=== PATIENT | male | born 1940 | race Hispanic/Latino ===

== ENCOUNTER 2017-05-14 10:46 | Observation (INO) | payer BC, MEDICARE ==
--- NOTE | 2017-05-14 11:08 | ED PDOC ---
Arrival/HPI - General Chief Complaint: Weakness/Neurological Deficit Time Seen by Provider: 05/14/17 10:51 Historian: Patient, Family - History of Present Illness Narrative History of Present Illness (Text): 05/14/17 10:55 A 76 year old male, whose past medical history includes Alzheimer's, COPD, dementia, and hypertension, accompanied by family members and presents to the emergency department with possible TIA. Patient's family members report patient started developing facial droop and eye rolled back and deviated to the left. Had possible near-syncopal episode. Patient denies any pain, fever, or any other complaints at this time. Also, family member mentions patient experiencing mini stroke several years ago. PMD: Dr. Perez Past Medical History - Provider Review Nursing Documentation Reviewed: Yes - Infectious Disease Hx of Infectious Diseases: None - Tetanus Immunization Tetanus Immunization: Unknown - Cardiac Hx UT: No Hx Hypertension: Yes - Pulmonary Hx Chronic Obstructive Pulmonary Disease (COPD): Yes - Neurological Hx Transient Ischemic Attacks (TIA): No - HEENT Hx HEENT Disorder: No - Endocrine/Metabolic Hx Diabetes Mellitus Type 1: No Hx Diabetes Mellitus Type 2: No - Integumentary Other/Comment: buttocks reddened - Musculoskeletal/Rheumatological Hx Falls: Yes - Genitourinary/Gynecological Hx Prostate Problems: Yes - Psychiatric Hx Depression: No Hx Emotional Abuse: No Hx Physical Abuse: No Hx Substance Use: No - Past Surgical History Past Surgical History: No Previous - Suicidal Assessment Feels Threatened In Home Enviroment: No Family/Social History - Physician Review Nursing Documentation Reviewed: Yes Family/Social History: No Known Family HX Smoking Status: Former Smoker Hx Alcohol Use: No Hx Substance Use: No Allergies/Home Meds Allergies/Adverse Reactions: Allergies No Known Allergies Allergy (Verified 05/20/15 16:06) Home Medications: Home Meds Medication Instructions Recorded Confirmed Lisinopril [Zestril] 20 mg PO DAILY 02/11/16 05/14/17 Tamsulosin [Flomax] 0.4 mg PO DAILY 02/11/16 05/14/17 Review of Systems - Review of Systems Constitutional: absent: Fevers, Other (no pain) Cardiovascular: Syncope (possible near-syncoal episode) Neurological: Facial Droop Physical Exam Vital Signs Temp Pulse Resp BP Pulse Ox 05/14/17 12:46 67 16 129/71 100 05/14/17 10:58 57 L 20 125/71 98 05/14/17 10:46 97.6 F 74 19 123/71 99 Finger Stick Blood Glucose: 114 - Systems Exam Head: Present: Atraumatic, Normocephalic Pupils: Present: PERRL Extroacular Muscles: Present: EOMI Conjunctiva: Present: Normal Mouth: Present: Moist Mucous Membranes Neck: Present: Normal Range of Motion Respiratory/Chest: Present: Clear to Auscultation, Good Air Exchange. No: Respiratory Distress, Accessory Muscle Use Cardiovascular: Present: Regular Rate and Rhythm, Normal S1, S2. No: Murmurs Abdomen: Present: Normal Bowel Sounds. No: Tenderness, Distention, Peritoneal Signs Back: Present: Normal Inspection Upper Extremity: Present: Normal Inspection. No: Cyanosis, Edema Lower Extremity: Present: Normal Inspection. No: Edema Neurological: Present: GCS=15, CN II-XII Intact, Speech Normal Skin: Present: Warm, Dry, Normal Color. No: Rashes Psychiatric: Present: Alert, Oriented x 3, Normal Insight, Normal Concentration Medical Decision Making ED Course and Treatment: 05/14/17 10:58 Impression: 76 year old male with possible TIA. Physical exam is benign. Plan: -- EKG -- Head CT -- Chest X-ray -- Labs -- Urinalysis -- Reassess and disposition Prior Visits: Notes and results from previous visits were reviewed. Patient was last seen in the emergency department on 02/11/2016 for abdominal distention and pain. Patient was admitted. Progress Notes: 05/14/2017 10:58 Code Stroke called. EKG: Ordered, reviewed, and independently interpreted the EKG. Rate : 65 BPM Rhythm : NSR Interpretation : No ST-segment elevations or depressions, no T-wave inversions, normal intervals. Comparison : No previous EKG for comparison. 05/14/2017 11:[address] FINDINGS: HEMORRHAGE: No intracranial hemorrhage. BRAIN: No mass effect or edema. Severe chronic microvascular changes are seen in the periventricular white matter. 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 VENTRICLES: Unremarkable. No hydroecephalus. CALVAIRUM: Unremarkable. PARANASAL SINUSES: Unremarkable as visualized. No significant inflammatory changes. 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 Findings are unchanged. OTHER FINDINGS: The findings were discussed with Dr. Soni at 11:20. IMPRESSION: Chronic infarcts and microvascular changes. No acute findings. Dictator: Chava Keith MD 05/14/2017 11:37 Chest X-ray FINDINGS: LUNGS: No active pulmonary disease. Low-normal lung volumes. No consolidation apparent prominent right 1st coaster cartilaginous junctional calcification. PLEURA: No significant pleural effusion identified, no pneumonthorax apparent. CARDIOVASCULAR: Normal. OSSEOUS STRUCTURES: Bilateral shoulder arthosis. VISUALIZED UPPER ABDOMEN: Normal. OTHER FINDINGS: None. IMPRESSION: No interval pathology noted. Dictator: Gabi Hagen MD - Lab Interpretations Lab Results: 05/14/17 11:15 05/14/17 11:15 Lab Results 05/14/17 11:15: Blood Type AB POSITIVE, Antibody Screen Negative, BBK History Checked No verified bt 05/14/17 11:15: Sodium 132, Potassium 4.9, Chloride 96 L, Carbon Dioxide 26, Anion Gap 15, BUN 13, Creatinine 1.1, Est GFR ( Amer) > 60, Est GFR (Non- Af Amer) > 60, Random Glucose 128 H, Calcium 10.1, Total Bilirubin 0.8, AST 30, ALT 31, Alkaline Phosphatase 58, Lactate Dehydrogenase 381, Total Creatine Kinase 107, Troponin I < 0.01, Total Protein 7.8, Albumin 4.5, Globulin 3.3, Albumin/Globulin Ratio 1.3, Triglycerides 84, Cholesterol 177, LDL Cholesterol Direct 124, HDL Cholesterol 39 05/14/17 11:15: Urine Color Yellow, Urine Appearance Sl cloudy, Urine pH 5.5, Ur Specific Starlight 1.020, Urine Protein Negative, Urine Glucose (UA) Negative, Urine Ketones Negative, Urine Blood Negative, Urine Nitrate Negative, Urine Bilirubin Negative, Urine Urobilinogen 0.2, Ur Leukocyte Esterase Small H, Urine RBC 0 - 2, Urine WBC 5 - 10, Ur Epithelial Cells 10 - 12, Urine Bacteria Mod 05/14/17 11:15: PT 12.2, INR 1.11 H, APTT 31.0 05/14/17 11:15: WBC 9.1 D, RBC 4.81, Hgb 14.9, Hct 43.2, MCV 89.8, MCH 31.0, MCHC 34.5, RDW 13.0, Plt Count 236, MPV 9.5, Gran % 82.7 H, Lymph % (Auto) 9.6 L , [place] % (Auto) 6.4 H, Eos % (Auto) 1.1 L, Baso % (Auto) 0.2, Gran # 7.49 H, Lymph # 0.9 L, [place] # 0.6, Eos # 0.1, Baso # 0.02 - RAD Interpretation Radiology Orders: 05/14/17 10:58 HEAD W/O (CODE STROKE) [CT] Stat CHEST PORTABLE [RAD] Stat - Medication Orders Current Medication Orders: Discontinued Medications Aspirin (Aspirin Supp) 300 mg RC STAT STA Stop: 05/14/17 12:18 Last Admin: 05/14/17 12:55 Dose: 300 mg MAR Pain/Vitals Document 05/14/17 12:55 JOL (Rec: 05/14/17 13:22 [id number] Pain Reassessment Is This A Pain ReAssessment? No Sleep Is patient sleeping during reassessment? No Presence of Pain Presence of Pain No Ceftriaxone Sodium (Rocephin 1 Gram Ivpb (D5w)) 1 gm in 100 mls @ 200 mls/hr IVPB STAT ONE PRN Reason: Protocol Stop: 05/14/17 12:44 Last Admin: 05/14/17 13:22 Dose: 200 mls/hr eMAR Start Stop Document 05/14/17 13:22 JOL (Rec: 05/14/17 13:22 [id number]) Intravenous Solution Start Date 05/14/17 Start Time 12:55 End Date 05/14/17 End time 13:25 Total Infusion Time 30 NIHSS Scale ([place]) Time Performed: 12:12 - How Severe is the Stoke Baseline Level of Consciousness: 0=Alert LOC to Questions: 0=Both comments correct LOC to commands: 0=Obeys both correctly Best Gaze: 0=Normal Visual: 0=No visual loss Facial: 0=Normal Motor Arm - Left: 0=No drift Motor Arm - Right: 0=No drift Motor Leg - Left: 0=No drift Motor Leg - Right: 0=No drift Limb Ataxia: 0=Absent Sensory: 0=Normal Best Language: 0=No aphasia Dysarthia: 0=Normal articulation Extinction & Inattention (Neglect): 0=Normal, no object Score: 0 Risk Level: No Stroke Risk rTPA Inclusion/Exclusion - Inclusion Criteria for Altepase Patient is 18 years or Older: Yes The Clinical Diagnosis of Ischemic Stroke That is Causing a Potentially Disabling Neurological Deficit: No Time of Onset is Well Established to be Less Than 270 Minute Before Treatment Would Begin: Yes Risk/Benefit Discussed With Patient/Family Member Present: Yes - Scribe Statement The provider has reviewed the documentation as recorded by the Geovanni Jarquin Provider Scribe Attestation: All medical record entries made by the Geovanni were at my direction and personally dictated by me. I have reviewed the chart and agree that the record accurately reflects my personal performance of the history, physical exam, medical decision making, and the department course for this patient. I have also personally directed, reviewed, and agree with the discharge instructions and disposition. Disposition/Present on Arrival - Present on Arrival Any Indicators Present on Arrival: No History of DVT/PE: No History of Uncontrolled Diabetes: No Urinary Catheter: No History of Decub. Ulcer: No History Surgical Site Infection Following: None - Disposition Have Diagnosis and Disposition been Completed?: Yes Diagnosis: Facial droop Disposition: HOSPITALIZED Disposition Time: 12:12 Patient Problems: Current Active Problems Problem Status Onset Facial droop Acute Condition: STABLE
--- NOTE | 2017-05-14 11:26 | CT ---
PROCEDURE: CT HEAD WITHOUT CONTRAST. HISTORY: Code Stroke COMPARISON: 02/12/2016 TECHNIQUE: Axial computed tomography images were obtained through the head/brain without intravenous contrast. Radiation dose: Total exam DLP = 747 mGy-cm. This CT exam was performed using one or more of the following dose reduction techniques: Automated exposure control, adjustment of the mA and/or kV according to patient size, and/or use of iterative reconstruction technique. FINDINGS: HEMORRHAGE: No intracranial hemorrhage. BRAIN: No mass effect or edema. Severe chronic microvascular changes are seen in the periventricular white matter. 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 VENTRICLES: Unremarkable. No hydrocephalus. CALVARIUM: Unremarkable. PARANASAL SINUSES: Unremarkable as visualized. No significant inflammatory changes. 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 Findings are unchanged OTHER FINDINGS: The findings were discussed with Dr. Soni at 11:20 a.m. IMPRESSION: Chronic infarcts and microvascular changes. No acute findings
[2017-05-14 11:36] LABS: BASO # 0.02 K/mm3 (0.0-2.0); BASO % 0.2 % (0.0-3.0); EOS # 0.1 (0.0-0.7); EOS % 1.1 % (1.5-5.0); GRAN # 7.49 (1.4-6.5); GRAN % 82.7 % (50.0-68.0); HEMATOCRIT 43.2 % (42.0-52.0); LYMPH # 0.9 (1.2-3.4); LYMPH % 9.6 % (22.0-35.0); MEAN CELL VOLUME 89.8 fl (80.0-105.0); MEAN CORPUSCULAR HGB CONC 34.5 g/dl (31.0-37.0); MEAN PLATELET VOLUME 9.5 fl (7.0-11.0); MONO # 0.6 (0.1-0.6); MONO % 6.4 % (1.0-6.0); PH,URINE 5.5 (4.7-8.0); URINE BILIRUBIN NEGATIVE (NEGATIVE); URINE BLOOD NEGATIVE (NEGATIVE); URINE GLUCOSE (UA) NEGATIVE (NEGATIVE); URINE KETONE NEGATIVE (NEGATIVE); URINE LEUKOCYTE ESTERASE SMALL Leu/uL (NEGATIVE); URINE PROTEIN NEGATIVE mg/dL (<30 mg/dL); URINE UROBILINOGEN 0.2 E.U./dL (<1 E.U./dL); WHITE BLOOD COUNT 9.1 10^3/ul (4.5-11.0)
[2017-05-14 11:37] LABS: URINE APPEARANCE SL CLOUDY (CLEAR); URINE COLOR YELLOW (YELLOW)
--- NOTE | 2017-05-14 11:39 | RAD ---
HISTORY: code stroke COMPARISON: 02/13/2016 FINDINGS: LUNGS: No active pulmonary disease. Low-normal lung volumes. No consolidation apparent prominent right 1st coaster cartilaginous junctional calcification. PLEURA: No significant pleural effusion identified, no pneumothorax apparent. CARDIOVASCULAR: Normal. OSSEOUS STRUCTURES: Bilateral shoulder arthrosis VISUALIZED UPPER ABDOMEN: Normal. OTHER FINDINGS: None. IMPRESSION: No interval pathology noted
[2017-05-14 11:48] LABS: URINE BACTERIA MOD (NEG); URINE RBC 0 - 2 /hpf (0-2)
[2017-05-14 11:49] LABS: ALB/GLOB RATIO 1.3 (1.1-1.8); ALKALINE PHOSPHATASE 58 U/L (38-126); ALT/SGPT 31 U/L (7-56); AST/SGOT 30 U/L (17-59); BILIRUBIN,TOTAL 0.8 mg/dL (0.2-1.3); BLOOD UREA NITROGEN 13 mg/dL (7-21); CALCIUM 10.1 mg/dL (8.4-10.5); CARBON DIOXIDE 26 mmol/L (21-33); CHLORIDE 96 mmol/L (98-107); CHOLESTEROL 177 mg/dL (130-200); GFR AFRICAN-AMERICAN > 60; GLUCOSE,RANDOM 128 mg/dL (70-110); POTASSIUM 4.9 mmol/L (3.6-5.0); SODIUM 132 mmol/L (132-148); TOTAL PROTEIN 7.8 g/dL (5.8-8.3)
[2017-05-14 11:55] LABS: INR 1.11 (0.93-1.08)
[2017-05-14 11:58] LABS: TROPONIN I < 0.01 ng/mL
[2017-05-14] MEDS ORDERED: cefTRIAXone 1 gm 1 GM/100 ML BAG IVPB ONE (12:15)
[2017-05-14] MEDS ORDERED: cefTRIAXone 1 gm 1 GM/100 ML BAG IVPB SCH (12:15)
--- NOTE | 2017-05-14 15:08 | CP.PCM.CON ---
<Dorys Villela - Last Filed: 05/14/17 17:34> History of Present Illness - History of Present Illness History of Present Illness: PGY-2 Neurology consult note for Dr. Cox's service 76 year old male with past medical history of Alzheimer's, COPD, dementia, and hypertension, presented to ED for facial droop and possible TIA. Patient has a history of dementia and his alert and orient to person only, history taken from family at bedside. Patient's at bedside states that patient was on the toilet when he developed facial droop and his eye rolled back and deviated to the left. She states that it lasted a few minutes and resolved spontaneously. She was unable to determine if patient was altered after the episode due to his dementia. She states that he is compliant with his medications. She denies any recent illness, travel. Patient denies any pain, fever, or any other complaints at this time. Patient does have history of mini stroke. PMH: Alzheimer's, COPD, dementia, and hypertension PSH: denies social history: former smoker, denies alcohol use, illicit drug use family history: father heart disease Review of Systems - Review of Systems Systems not reviewed;Unavailable: Dementia All systems: reviewed and no additional remarkable complaints except (as stated in HPI) Past Patient History - Infectious Disease Hx of Infectious Diseases: None - Tetanus Immunizations Tetanus Immunization: Unknown - Past Social History Smoking Status: Former Smoker - CARDIAC Hx Heart Attack: No Hx Hypertension: Yes - PULMONARY Hx Chronic Obstructive Pulmonary Disease (COPD): Yes - NEUROLOGICAL Hx Transient Ischemic Attacks (TIA): No - HEENT Hx HEENT Problems: No - ENDOCRINE/METABOLIC Hx Diabetes Mellitus Type 1: No Hx Diabetes Mellitus Type 2: No - INTEGUMENTARY Other/Comment: buttocks reddened - MUSCULOSKELETAL/RHEUMATOLOGICAL Hx Falls: Yes - GENITOURINARY/GYNECOLOGICAL Hx Prostate Problems: Yes - PSYCHIATRIC Hx Depression: No Hx Emotional Abuse: No Hx Physical Abuse: No Hx Substance Use: No - SURGICAL HISTORY Hx Surgeries: No Meds Allergies/Adverse Reactions: Allergies Allergy/AdvReac Type Severity Reaction Status Date / Time No Known Allergies Allergy Verified 05/14/17 14:55 Physical Exam - Constitutional Appears: Well, No Acute Distress - Head Exam Head Exam: ATRAUMATIC, NORMAL INSPECTION, NORMOCEPHALIC - Eye Exam Eye Exam: EOMI, Normal appearance, PERRL - ENT Exam ENT Exam: Mucous Membranes Moist - Respiratory Exam Respiratory Exam: Clear to Auscultation Bilateral, NORMAL BREATHING PATTERN. absent: Wheezes, Respiratory Distress, Stridor - Cardiovascular Exam Cardiovascular Exam: REGULAR RHYTHM, +S1, +S2. absent: Tachycardia, Diastolic murmur, Systolic Murmur - GI/Abdominal Exam GI & Abdominal Exam: Normal Bowel Sounds, Soft. absent: Tenderness - Neurological Exam Neurological exam: Alert, CN II-XII Intact Additional comments: patient is alert and oriented to person only, at baseline history of dementia, no facial droop or asymmetry, no pronator drift, strength 5/5 all extremities - Skin Skin Exam: Dry, Intact, Normal Color, Warm Results - Vital Signs Recent Vital Signs: Last Vital Signs Temp 97.6 F 05/14/17 10:46 Pulse 67 05/14/17 12:46 Resp 16 05/14/17 12:46 BP 129/71 05/14/17 12:46 Pulse Ox 100 05/14/17 12:46 - Labs Result Diagrams: 05/14/17 11:15 05/14/17 11:15 Labs: Laboratory Results - last 24 hr 05/14/17 13:07 Blood Type Confirm AB POSITIVE Assessment & Plan - Assessment and Plan (Free Text) Assessment: 76 year old male with past medical history of Alzheimer's, COPD, dementia, and hypertension, presented to ED for facial droop most likely due to vaso vagal vs blood pressure fluctuations . - CT head showed chronic infarct and mircovascular changes - maintain blood pressure - orthostatic vitals - mri and mra of brain - carotid US - PT/OT case reviewed an discussed with attending <Jama Cox - Last Filed: 05/14/17 19:56> Meds - Medications Medications: Current Medications Lisinopril (Zestril) 20 mg PO DAILY AZALIA Results - Vital Signs Recent Vital Signs: Last Vital Signs Temp 97 F L 05/14/17 17:53 Pulse 60 05/14/17 18:00 Resp 18 05/14/17 17:53 BP 159/79 H 05/14/17 17:53 Pulse Ox 97 05/14/17 17:53 - Labs Result Diagrams: 05/14/17 11:15 05/14/17 11:15 Labs: Laboratory Results - last 24 hr 12/13/17 13:07 Blood Type Confirm AB POSITIVE Attending/Attestation - Attestation I have personally seen and examined this patient.: Yes I have fully participated in the care of the patient.: Yes I have reviewed all pertinent clinical information: Yes
[2017-05-14 17:28] VITALS: BMI 21.4
[2017-05-14] MEDS ORDERED: Pneumococcal 23-Valent Vaccine IM ONE (17:28)
[2017-05-14] MEDS ORDERED: Influenza Vaccine 60 mcg/0.5 mL SYR (4YR UP) IM ONE (17:28)
--- NOTE | 2017-05-14 19:23 | MRI ---
EXAM: MR Angiography Head Without Intravenous Contrast EXAM DATE/TIME: 05/14/2017 4:23 PM CLINICAL HISTORY: The patient age is 76 years old and is male; Signs and symptoms; Other: TIA Facility exam id and description: Mri mra heads mra head without contrast TECHNIQUE: Magnetic resonance angiography images of the head without intravenous contrast. MIP reconstructed images were created and reviewed. COMPARISON: CT - HEAD W/O (CODE STROKE) 2017-05-14 11:04 FINDINGS: Limitations: This study is technically limited. Right internal carotid artery: No acute findings. Intracranial segment is patent with no significant stenosis. No aneurysm. Right anterior cerebral artery: There is stenosis of the A1 segment of the right anterior cerebral artery. Motion artifact limits evaluation of the anterior cerebral arteries. Right middle cerebral artery: There is mild stenosis of the distal right M1 segment of the middle cerebral artery. There are short segments of flow-voids involving M2 branches of the bilateral middle cerebral arteries, consistent with hemodynamically significant stenoses when correlated with the raw data. No aneurysm. Right posterior cerebral artery: There are stenoses of the bilateral posterior cerebral arteries. No aneurysm. Right vertebral artery: There is a limited evaluation of the distal vertebral arteries. No visualized stenosis or occlusion Left internal carotid artery: Motion artifact limits evaluation of the anterior cerebral arteries. No occlusion. Left anterior cerebral artery: No occlusion or significant stenosis. No aneurysm. Left middle cerebral artery: No occlusion or significant stenosis. No aneurysm. Left posterior cerebral artery: See above. Left vertebral artery: There is stenosis of the distal left vertebral artery. Basilar artery: No occlusion or significant stenosis. No aneurysm. IMPRESSION: 1. There is stenosis of the distal left vertebral artery. 2. There is mild stenosis of the distal right M1 segment of the middle cerebral artery. There are short segments of flow-voids involving M2 branches of the bilateral middle cerebral arteries, consistent with hemodynamically significant stenoses when correlated with the raw data. 3. There is stenosis of the A1 segment of the right anterior cerebral artery. 4. Additional findings described above.
--- NOTE | 2017-05-14 19:35 | MRI ---
EXAM: MR Head Without Intravenous Contrast EXAM DATE/TIME: 05/14/2017 4:22 PM CLINICAL HISTORY: The patient age is 76 years old and is male; Signs and symptoms; Other: TIA Facility exam id and description: Mri br s brain without contrast TECHNIQUE: Magnetic resonance images of the head/brain without intravenous contrast in multiple planes. COMPARISON: CT - HEAD W/O (CODE STROKE) 2017-05-14 11:04 FINDINGS: Brain: There is no restricted diffusion within the brain to suggest acute ischemic change. There are multiple foci/areas of high FLAIR signal intensity within the cerebral white matter. There is no mass effect or restricted diffusion associated with these foci. In a patient this age, this likely represents chronic small vessel ischemic disease. Foci of T2 hyperintense chronic ischemic changes/chronic lacunar infarcts are identified within the bilateral basal ganglia, bilateral thalami, jalen, and cerebellar lobes. There is mild prominence of the sulci, compatible with atrophy. Small foci of magnetic susceptibility are identified within the right parietal lobe, with additional foci within the jalen, left temporal lobe, bilateral thalami, and left basal ganglia. Some of these foci are associated with chronic lacunar infarcts within the bilateral thalami and left basal ganglia. 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 Cavernous malformations and amyloid angiopathy are also within the differential. There is a low-lying right cerebellar tonsil extending 6 mm below the level of the foramen magnum, suggestive of a Chiari I malformation. Ventricles: There is mild ventriculomegaly. Bones/joints: No acute abnormality. Sinuses: Unremarkable as visualized. No acute sinusitis. Mastoid air cells: Effusions are again visualized within the left mastoid air cells. There is disruption of the left mastoid air cells and middle ear ossicles on CT, which is likely erosive for postoperative. Orbits: No acute abnormality, as visualized. IMPRESSION: 1. There is no restricted diffusion within the brain to suggest acute ischemic change. 2. There are multiple foci/areas of high FLAIR signal intensity within the cerebral white matter. In a patient this age, this likely represents chronic small vessel ischemic disease. 3. Foci of chronic ischemic changes/chronic lacunar infarcts are identified within the bilateral basal ganglia, bilateral thalami, jalen, and cerebellar lobes. 4. Mild atrophy. 5. There is mild ventriculomegaly. 6. Small foci of magnetic susceptibility are identified within the right parietal lobe, with additional foci within the jalen, left temporal lobe, bilateral thalami, and left basal ganglia. Some of these foci are associated with chronic lacunar infarcts within the bilateral thalami and left basal ganglia. 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 Cavernous malformations and amyloid angiopathy are also within the differential. 7. There is a low-lying right cerebellar tonsil extending 6 mm below the level of the foramen magnum, suggestive of a Chiari I malformation. 8. Effusions are again visualized within the left mastoid air cells.
--- NOTE | 2017-05-14 21:09 | CON ---
DATE: HISTORY OF PRESENT ILLNESS: This is 76-year-old white male with past medical history of dementia, COPD, hypertension, came to the emergency room with the complaint of facial droop and eyes rolling backward and deviated to the left, and the patient was brought to the emergency room. CAT scan of the head was done which was reported negative, symptoms improved. PAST MEDICAL HISTORY: COPD, dementia, and hypertension. The patient also had a history of TIA. PHYSICAL EXAMINATION: HEENT: Normocephalic, atraumatic. Pupils are reactive. EOM intact. Visual torres, full. No facial asymmetry. Tongue is midline. NECK: Supple. NEUROLOGIC: Alert, awake, and oriented x3. No aphasia. Cranial nerves II through XII are tested. Motor examination: Moves all the extremities spontaneously, upper more than the lower. Deep tendon reflexes 1+. Both plantars are downgoing. Sensory appears intact. Cerebellar and gait, deferred. LABORATORY DATA: WBC 9.1, hemoglobin 14.9, hematocrit 43.2, and platelets 236. Sodium 132, potassium 4.9, chloride 96, CO2 of 26, glucose 128, BUN 13, creatinine 1.1. IMPRESSION: Possibly transient ischemic attack. PLAN: Workup is in progress. Continue present management and we will follow up. We will do carotid Doppler. Harley Cox MD
--- NOTE | 2017-05-14 23:20 | CARD ---
APPROVED REPORT EKG Measurement Heart [id number] <Conclusion> Normal sinus rhythm Normal ECG
--- NOTE | 2017-05-15 02:25 | HP ---
HISTORY OF PRESENT ILLNESS: I known Yoshi very well from house calls. The has called me telling me he had facial change, we sent him to the emergency room, it resolved. I see him in the bed in room 372. He is comfortable, smiling at me in bed. He is back to his old self. I do not think he might have had a TIA, but he is also having swallowing issues. We are waiting for swallow evaluation before we feed him. He is a 76-year-old man with acute change in face with left-sided facial droop. PAST MEDICAL HISTORY: Alzheimer's, COPD, dementia, hypertension, falls, prostate problems of BPH. FAMILY HISTORY: Hypertension in the family. SOCIAL HISTORY: Former smoker. No alcohol. No drugs. ALLERGIES: NO KNOWN DRUG ALLERGIES. MEDICATIONS: He is on Zestril, Flomax, supposed to be on a baby aspirin. REVIEW OF SYSTEMS: He is really unable to give me answers, the is there, but he is smiling and putting his hand out to shake my hand, in good spirits at his baseline. He said my name, but no apparent vision or hearing changes, no acute distress. No apparent shortness of breath or chest pain or abdominal pain. Moves all four extremities. PHYSICAL EXAMINATION: VITAL SIGNS: He has 97.6 temperature, 74 pulse, 19 respiratory rate, 123/71 blood pressure, and 99% O2 saturation on room air. HEENT: His head is atraumatic and normocephalic. Extraocular muscles intact. Pupils are equal and reactive to light and accommodation. Tongue is midline. He closes his eyes tight. He can shrug his shoulders. He can raise his arms over his head. He could smile and frown. Throat is moist. NECK: Supple. HEART: Regular rate. Normal S1 and S2. LUNGS: Clear to auscultation. Decreased breath sounds right now. No rhonchi, rales or wheezes. ABDOMEN: Soft and nontender. Positive bowel sounds. No guarding. No rebound. No CVA tenderness. EXTREMITIES: No edema. He could move all four extremities. NEUROLOGIC: GCS is 15. Cranial nerves II through XII grossly intact. Speech is normal. SKIN: Warm and dry. No rashes or ulcers appreciated. PSYCHIATRIC: He is presently confused, smiling at me. No neurological issue at this time and mostly resolved. LABORATORY DATA: He had a urine which is small and moderate bacteria. I will put him on antibiotic for UTI. Sodium 132, potassium 4.9, BUN 30, creatinine 1.1, GFR is greater than 60, sugars is 128, calcium 10.1, total bili is 0.8, AST is 30, ALT is 31, alk phos is 58, lactate dehydrogenase is 381, total creatine kinase is 107, troponin I is less than 0.01, total protein is 7.8, albumin is 4.5, globulin 2.3, triglycerides are 84, and cholesterol 177. INR 1.11. White count 9.1, hemoglobin 14.9, 43.2 hematocrit with 236 platelets. He had a chest x-ray. No interval pathology noted on the chest. Brain showed chronic infarcts, no acute findings. IMPRESSION AND PLAN: He is here, looks like he is having a facial droop which resolved, looks like a transient ischemic attack. I will call in Neurology. I will call in Cardiology. He is on aspirin, ceftriaxone one time dose for urinary tract infection and Zestril. He is n.p.o. until his swallow evaluation recommends. Take a look at physical therapy, discussed with the at length. Hopefully, he will do very well. I will check his labs tomorrow. He is probably having a transient ischemic attack at this time. He is on observation level of care. Maurice Perez DO MTDD
[2017-05-15 07:29] LABS: HEMATOCRIT 41.5 % (42.0-52.0); MEAN CELL VOLUME 88.5 fl (80.0-105.0); MEAN CORPUSCULAR HEMOGLOBIN 30.3 pg (25.0-35.0); MEAN CORPUSCULAR HGB CONC 34.2 g/dl (31.0-37.0); MEAN PLATELET VOLUME 9.6 fl (7.0-11.0); RED CELL DISTRIBUTION WIDTH 12.9 % (11.5-14.5); WHITE BLOOD COUNT 6.9 10^3/ul (4.5-11.0)
[2017-05-15 08:13] LABS: ALB/GLOB RATIO 1.3 (1.1-1.8); ALKALINE PHOSPHATASE 65 U/L (38-126); ALT/SGPT 34 U/L (7-56); AST/SGOT 27 U/L (17-59); BLOOD UREA NITROGEN 13 mg/dL (7-21); CALCIUM 9.6 mg/dL (8.4-10.5); GFR AFRICAN-AMERICAN > 60; GLUCOSE,RANDOM 91 mg/dL (70-110); TOTAL PROTEIN 7.2 g/dL (5.8-8.3)
[2017-05-15 08:29] LABS: CARBON DIOXIDE 23 mmol/L (21-33); CHLORIDE 98 mmol/L (98-107); POTASSIUM 4.5 mmol/L (3.6-5.0); SODIUM 132 mmol/L (132-148)
--- NOTE | 2017-05-15 10:11 | CP.PCM.PN ---
<Dorys Villela - Last Filed: 05/15/17 12:27> Subjective - Date & Time of Evaluation Date of Evaluation: 05/15/17 Time of Evaluation: 09:00 - Subjective Subjective: PGY-2 Neurology progress notes for Dr. Cox Patient seen and examined at bedside. No acute distress. Patient is resting comfortably in bed. at bedside states that he did not sleep well, but no other issues. Patient is alert but only oriented to person. Objective - Vital Signs/Intake and Output Vital Signs (last 24 hours): Temp Pulse Resp BP Pulse Ox 98 F 60 20 133/78 94 L 05/15/17 06:00 05/15/17 06:00 05/15/17 06:00 05/15/17 06:00 05/15/17 00:01 - Medications Medications: Current Medications Lisinopril (Zestril) 20 mg PO DAILY AZALIA - Labs Labs: 05/15/17 06:55 05/15/17 06:55 PT 12.2 SECONDS (9.4-12.5) 05/14/17 11:15 INR 1.11 (0.93-1.08) H 05/14/17 11:15 APTT 31.0 Seconds (25.1-36.5) 05/14/17 11:15 - Constitutional Appears: Well, No Acute Distress - Head Exam Head Exam: ATRAUMATIC, NORMAL INSPECTION, NORMOCEPHALIC - Eye Exam Eye Exam: EOMI, Normal appearance - ENT Exam ENT Exam: Mucous Membranes Moist - Respiratory Exam Respiratory Exam: NORMAL BREATHING PATTERN. absent: Respiratory Distress - Cardiovascular Exam Cardiovascular Exam: REGULAR RHYTHM - Neurological Exam Neurological Exam: Alert, Awake, CN II-XII Intact. absent: Oriented x3 Neuro motor strength exam: Left Upper Extremity: 5, Right Upper Extremity: 5, Left Lower Extremity: 5, Right Lower Extremity: 5 Assessment and Plan - Assessment and Plan (Free Text) Assessment: 76 year old male with past medical history of Alzheimer's, COPD, dementia, and hypertension, presented to ED for facial droop most likely due to vaso vagal vs blood pressure fluctuations. - CT head showed chronic infarct and mircovascular changes - MRI showed chronic small vessel disease - MRA showed stenosis of distal left vertebral artery - carotid ultrasound completes, pending official read - maintain systolic blood pressure between 130-140 - asa and plavix - orthostatic vitals - PT/OT case reviewed an discussed with attending <Jama Cox - Last Filed: 05/15/17 18:04> Objective - Vital Signs/Intake and Output Vital Signs (last 24 hours): Temp Pulse Resp BP Pulse Ox 97.6 F 79 18 133/87 95 05/15/17 12:00 05/15/17 12:00 05/15/17 12:00 05/15/17 12:00 05/15/17 06:00 - Labs Labs: 05/15/17 06:55 05/15/17 06:55 PT 12.2 SECONDS (9.4-12.5) 05/14/17 11:15 INR 1.11 (0.93-1.08) H 05/14/17 11:15 APTT 31.0 Seconds (25.1-36.5) 05/14/17 11:15 Attending/Attestation - Attestation I have personally seen and examined this patient.: Yes I have fully participated in the care of the patient.: Yes I have reviewed all pertinent clinical information, including history, physical exam and plan: Yes
[2017-05-15 10:14] VITALS: O2SAT 95
[2017-05-15] MEDS ORDERED: cefTRIAXone 1 gm 1 GM/100 ML BAG IVPB ONE (10:15)
--- NOTE | 2017-05-15 11:00 | DS ---
HISTORY OF PRESENT ILLNESS: He is sitting out of bed to chair. He is very alert and comfortable. Mild cough but not bad. He is on Zestril. He does takes Flomax and MiraLax at home. He is alert, much better than when he came in. He came in and had like a TIA-like symptoms and they resolved very quickly. Now, awaiting for swallow evaluation which he failed in the ER. If he does well, I would like to discharged him later today. PHYSICAL EXAMINATION: VITAL SIGNS: He has a 98 temperature, 60 pulse, 133/78 blood pressure, 20 respiratory rate, 94% O2 sat on room air. HEENT: Head is atraumatic and normocephalic. He is alert, smiling, laughing with me. He is back to his old self. HEART: Regular rate. LUNGS: Clear to auscultation. Mild congestion, but changes and clears with cough. ABDOMEN: Soft. EXTREMITIES: No edema. MEDICATIONS: He is currently on Zestril. I am going to add an aspirin daily to him, and we will have to make it a suppository since he is not allowed to swallow at this time. I discussed this with waiting for swallow evaluation to happen, so we can get him home. LABORATORY DATA: He has a 6.9 white count, 14.2 hemoglobin, 41.5 hematocrit, 230 platelets. Sodium 132, potassium 4.5, BUN 30, creatinine 0.9, GFR is greater than 60, sugar is 91, calcium is 9.6, total bilirubin 1, AST is 27, ALT is 34, alkaline phosphatase is 65. Total protein is 7.2. PLAN: I am hoping we can discharge him later today after the swallow evaluation and the recommendations. Maurice Perez DO
--- NOTE | 2017-05-15 12:03 | US ---
PROCEDURE: Bilateral carotid artery duplex ultrasound HISTORY: Carotid stenosis TIA PHYSICIAN(S): Kalia Cueva MD. TECHNIQUE: Duplex sonography and color-flow Doppler were used to evaluate the carotid bifurcations and limited segments of the vertebral arteries bilaterally. FINDINGS: There is mild to moderate focal heterogeneous echogenic plaque noted at the carotid bifurcations bilaterally. The peak systolic velocity in the proximal right internal carotid artery is 117 cm/sec. This corresponds to a 40-59 percent proximal right ICA stenosis. Mildly elevated systolic velocities are noted in the proximal right external carotid artery. There is antegrade flow in the right vertebral artery. The peak systolic velocity in the proximal left internal carotid artery is 136 cm/sec. This corresponds to a 40-59 percent proximal left ICA stenosis. Normal systolic velocities are noted in the proximal left external carotid artery. There is antegrade flow in the small left vertebral artery. IMPRESSION: 1. Bilateral 40-59 percent proximal ICA stenoses. 2. Antegrade flow in both vertebral arteries.
[2017-05-15 12:27] VITALS: BP 133/87; PULSE 79; RESP 18; TEMP 97.6
--- NOTE | 2017-05-15 19:18 | CON ---
CARDIOLOGY CONSULTATION DATE: 05/15/2017 HISTORY: The patient is a 76-year-old male who presents with facial droop, which has resolved since he has been in the hospital. PAST MEDICAL HISTORY: The patient's past medical history includes a history of severe dementia. He suffers from hypertension. Previous cardiac evaluation revealed a good LV function by echocardiogram performed in 2014. He is currently being treated with lisinopril at home for his blood pressure. Negative diabetes mellitus. No previous cardiac history noted. SOCIAL HISTORY: The patient lives at home with a helper. REVIEW OF SYSTEMS: 14-point review of systems was reviewed in detail. The patient denies chest pain, denies shortness of breath. PHYSICAL EXAMINATION: VITAL SIGNS: Blood pressure is 133/78. The heart rate is in the 60s, normal sinus rhythm. NECK: Negative JVD. LUNGS: Without rales. HEART: S1, S2 without murmurs, without gallops. EXTREMITIES: Without edema. NEUROLOGICAL: The patient has symmetric facial features. No focal deficits noted. The patient is mildly slow in mentation. LABORATORIES: Include EKG, which is unremarkable. The patient is in normal sinus rhythm. The hemoglobin is 14.2. Chemistries: BUN and creatinine are unremarkable. Troponin is negative x1. IMPRESSION: 1. Transient ischemic attack. 2. Hypertension. 3. History of multiple microvascular disease on MRI of the brain. 4. Dementia. 5. No evidence for acute coronary syndrome. PLAN: Given these findings, the patient has been started on aspirin. We will obtain an echocardiogram to evaluate his LV function. Kalia Toussaint MD
== END 2017-05-15 14:27 | disposition home or self-care (01) ==
LOC: ED 10:46 → ERH 12:11 → 3RSO 13:54
PROVIDERS: ADMIT Family Medicine; ATTEND Family Medicine
DX: G45.9 Transient cerebral ischemic attack, unspecified (principal); R29.810 Facial weakness; N40.0 Benign prostatic hyperplasia without lower urinary tract symptoms; I10 Essential (primary) hypertension; I65.02 Occlusion and stenosis of left vertebral artery; J44.9 Chronic obstructive pulmonary disease, unspecified; G30.9 Alzheimer's disease, unspecified; F02.80 Dementia in other diseases classified elsewhere, unspecified severity, without behavioral disturbance, psychotic disturbance, mood disturbance, and anxiety; Z87.891 Personal history of nicotine dependence
CPT/HCPCS: 36415; 70450; 70544; 70551; 71010; 80053; 80061; 81001; 82550; 82948; 83036; 83615; 84484; 85025; 85027; 85610; 85730; 86850; 86900; 92610; 93005; 93880; 96365; 99285; G0378; G8996; G8997; J0696; J2060

== ENCOUNTER 2017-06-21 12:56 | Inpatient (IN) | payer MEDICARE ==
[2017-06-21 12:56] VITALS: BMI 21.4
[2017-06-21] MEDS ORDERED: Sodium Chloride 0.9% 1,000 ML IV ONE ×2 (14:46→20:46)
--- NOTE | 2017-06-21 14:56 | ED PDOC ---
Arrival/HPI - General Chief Complaint: Fever Time Seen by Provider: 06/21/17 13:00 Historian: Patient, Family - History of Present Illness Narrative History of Present Illness (Text): you were treated in the ED today for history of alzheimers, having fever, congestion, dark urine, right side/flank discomfort, but otherwise without any nausea/vomiting/headache/dizziness/chest pain/current abdomen pain/numbness/ tingling/loss of limb function/pain with urination. 06/21/17 14:53 Time/Duration: Other (1 day) Symptom Onset: Gradual Symptom Course: Improving Past Medical History - Provider Review Nursing Documentation Reviewed: Yes - Travel History Have you recently traveled outside [place] w/in the past 3 mons?: Yes - Infectious Disease Hx of Infectious Diseases: None - Tetanus Immunization Tetanus Immunization: Unknown - Cardiac Hx Hypertension: Yes - Pulmonary Hx Chronic Obstructive Pulmonary Disease (COPD): Yes - Neurological HX Cerebrovascular Accident: Yes (TIA?) - HEENT Hx HEENT Disorder: No - Endocrine/Metabolic Hx Diabetes Mellitus Type 1: No Hx Diabetes Mellitus Type 2: No - Hematological/Oncological Hx Blood Disorders: No - Integumentary Other/Comment: buttocks reddened - Musculoskeletal/Rheumatological Hx Falls: Yes - Gastrointestinal Hx Gastrointestinal Disorders: Yes (INCONTINENT,CONSTIPATION,COLITIS) - Genitourinary/Gynecological Hx Prostate Problems: Yes - Psychiatric Hx Depression: No Hx Emotional Abuse: No Hx Physical Abuse: No Hx Substance Use: No - Past Surgical History Past Surgical History: No Previous - Anesthesia Hx Anesthesia: No - Suicidal Assessment Feels Threatened In Home Enviroment: No Family/Social History - Physician Review Nursing Documentation Reviewed: Yes Family/Social History: No Known Family HX Smoking Status: Former Smoker Hx Alcohol Use: Yes (USED TO DRINK ALCOHOL QUIT.) Hx Substance Use: No Allergies/Home Meds Allergies/Adverse Reactions: Allergies No Known Allergies Allergy (Verified 06/21/17 13:12) Home Medications: Home Meds Medication Instructions Recorded Confirmed Lisinopril [Zestril] 20 mg PO DAILY 02/11/16 06/21/17 Tamsulosin [Flomax] 0.4 mg PO DAILY 02/11/16 06/21/17 Review of Systems - Review of Systems Constitutional: Fevers Eyes: Normal ENT: Normal Respiratory: Other (congestion) Cardiovascular: Normal Gastrointestinal: Other (right flank pain) Genitourinary Male: Other (dark urine) Musculoskeletal: Normal Skin: Normal Neurological: Other (baseline per family) Endocrine: Normal Hemo/Lymphatic: Normal Psychiatric: Normal Physical Exam Vital Signs Reviewed: Yes Vital Signs Temp Pulse Resp BP Pulse Ox 06/21/17 20:41 99 F 91 H 18 137/77 97 06/21/17 17:01 99.5 F 93 H 18 122/78 95 06/21/17 16:12 99.2 F 97 H 18 118/71 95 06/21/17 13:12 100.4 F H 96 H 18 122/76 98 Temperature: Febrile Blood Pressure: Hypertensive Pulse: Regular Respiratory Rate: Normal Appearance: Positive for: Well-Appearing, Non-Toxic Pain Distress: None Mental Status: Positive for: other (at baseline mental status per family) - Systems Exam Head: Present: Atraumatic, Normocephalic Pupils: Present: PERRL Extroacular Muscles: Present: EOMI Conjunctiva: Present: Normal Ears: Present: Normal Mouth: Present: Moist Mucous Membranes Pharnyx: Present: Normal Nose (External): Present: Atraumatic Nose (Internal): Present: Normal Inspection Neck: Present: Normal Range of Motion Respiratory/Chest: Present: Clear to Auscultation, Good Air Exchange Cardiovascular: Present: Regular Rate and Rhythm Abdomen: No: Tenderness, Distention, Normal Bowel Sounds, Peritoneal Signs, Rebound, Guarding, McBurney's Point Tender, Rovsing's Sign Present, Hernias, Feeding Tubes, Ostomy Tubes, Mass/Organomegaly, Scars, Other Back: Present: Normal Inspection Upper Extremity: Present: Normal Inspection Lower Extremity: Present: Normal Inspection Neurological: Present: Motor Func Grossly Intact, Other (at baseline mental/ neurologic status) Skin: Present: Warm, Normal Color Psychiatric: Present: Alert, Other (at baseline mental status) Medical Decision Making ED Course and Treatment: you were treated in the ED today for history of alzheimers, having fever, congestion, dark urine, right side/flank discomfort, but otherwise without any nausea/vomiting/headache/dizziness/chest pain/current abdomen pain/numbness/ tingling/loss of limb function/pain with urination. You were otherwise breathing easily, smiling with your family, good strength/sensation, clear lungs , no abdomen tenderness, fever temp 100.4___, stable heart rate 96, stable breathing rate 18, excellent oxygen level 98% room air, elevated blood pressure 122/76 which we recommend repeat in 2-3 days primary care office to determine further treatment, you have blood tests infection count 21.4, stable blood level hemoglobin___/platelets___, stable chemistry sodium 119.0 , potassium 6.3 , bicarbonate 24.2, chloride 88.0 , glucose 172, magnesium, heart blood test negative, bnp 1500, urine test____, Lactic 2.7 and repeat 2.0, radiology cxr no focal infiltrate, ECG similar to prior, tylenol, intravenous fluids, Zosyn, sepsis bundle initiated. CXR interstitial changes. no inflitrate. vascular congestion. ivf hydration CHEST X-RAY Dictator : Jimbo Guerrero MD Report Date : 06/21/2017 17:48:12 IMPRESSION: Poor expiratory effort with probable crowding at the lung bases. Mild interstitial thickening which may suggest slight vascular congestion. EXAM: CT Abdomen and Pelvis Without Intravenous Contrast EXAM DATE/TIME: 06/21/2017 2:51 PM IMPRESSION: 1. There is progressive distention of the cecum. Within the dependent submucosal region of the cecum, multiple new small foci of gas are visualized within the cecum, concerning for pneumatosis. This can be associated with ischemic colitis. Pericolonic shadowing is identified within the right side the abdomen. 2. Diverticulosis. 3. The gallbladder is distended. No discrete gallstones are visualized. There stranding of the adjacent to the gallbladder, which is likely infectious or inflammatory. Acalculous cholecystitis is considered. Clinical correlation and ultrasonography are recommended. 4. A consolidation is visualized within the right lower lobe posteriorly, consistent with atelectatic change or infiltrate. Additional atelectatic changes are seen within both lower lobes. 5. The prostate is enlarged. 6. There is no hydronephrosis or obstructive calculi within the renal collecting systems bilaterally. 7. There is a moderate compression fracture of the L4 vertebral body, new compared to the prior study. Stable compression fractures are identified of T10 and L3. 8. A few foci of hypodense gas are visualized within the anterior aspect of the liver, which are new and concerning for portal venous gas. 9. The stomach is distended. 10. Additional CT findings described above. Dictated and Authenticated by: Nicolás Wolff MD 06/21/2017 7:19 PM Eastern Time ([place] & [place]) Addendum created by Nicolás Wolff MD on 06/21/2017 7:50 PM Eastern Time ([place] & [place]) THIS REPORT CONTAINS FINDINGS THAT MAY BE CRITICAL TO PATIENT CARE. The findings were verbally communicated via telephone conference with Pablito KAHN at 7:48 PM EST on 06/21/2017. The findings were acknowledged and understood. Correction:"Pericolonic shadowing is identified within the right side the abdomen.", should say,"Pericolonic stranding is identified within the right side the abdomen." Initial Report created on 06/21/2017 7:19 PM Eastern Time ([place] & [place]) 06/21/17 20:39 d/w Dr. Perez who stated agreed stranding gb, foci gas liver/cecum/pneumatosis , with flagyl, us ruq/gb, dr. ding surgery consult, dr. sena ID. 06/21/17 21:29 d/w Dr. Bell surgery who will evaluate patient. - Lab Interpretations Lab Results: 06/21/17 15:00 06/21/17 16:00 Lab Results 06/21/17 18:20: Urine Color Yellow, Urine Appearance Clear, Urine pH 6.5, Ur Specific [place] 1.020, Urine Protein 30 H, Urine Glucose (UA) Negative, Urine Ketones 15 H, Urine Blood Small H, Urine Nitrate Negative, Urine Bilirubin Negative, Urine Urobilinogen 2.0 H, Ur Leukocyte Esterase Negative, Urine RBC 0 - 2, Urine WBC 0 - 2, Ur Epithelial Cells 1 - 3, Urine Bacteria Trace, Hyaline Casts 0 - 2 06/21/17 16:00: pO2 52, VBG pH 7.40, VBG pCO2 34.0 L, VBG HCO3 21.1, VBG Total CO2 22.1, VBG O2 Sat (Calc) 92.7 H, VBG Base Excess -3.0 L, VBG Potassium 5.3 H , Sodium 121.0 L, Chloride 87.0 L, Glucose 169 H, Lactate 2.0, FiO2 21.0, Venous Blood Potassium 5.3 H 06/21/17 16:00: Sodium 122 L, Chloride 88 L, Potassium 5.2 H, Carbon Dioxide 21 , Anion Gap 17, BUN 16, Creatinine 1.0, Est GFR ( Amer) > 60, Est GFR ( Non-Af Amer) > 60, Random Glucose 158 H, Calcium 10.3, Phosphorus 3.0, Magnesium 1.9, Total Bilirubin 1.2, AST 30, ALT 32, Alkaline Phosphatase 80, Troponin I < 0.01, NT-Pro-B Natriuret Pep 1500 H, Total Protein 7.8, Albumin 4.1 , Globulin 3.7, Albumin/Globulin Ratio 1.1 06/21/17 15:00: Influenza Typ A,B (EIA) Negative for flu a/b 06/21/17 15:00: pO2 36, VBG pH 7.40, VBG pCO2 39.0 L, VBG HCO3 24.2, VBG Total CO2 25.4, VBG O2 Sat (Calc) 82.4 H, VBG Base Excess -0.5 L, VBG Potassium 6.3 H* , Sodium 119.0 L*, Chloride 88.0 L, Glucose 172 H, Lactate 2.7 H, FiO2 21.0, Venous Blood Potassium 6.3 H* 06/21/17 15:00: PT 12.7 H, INR 1.11 H, APTT 29.2 06/21/17 15:00: WBC 21.4 H D, RBC 5.54, Hgb 17.6 D, Hct 48.2, MCV 87.0, MCH 31.8, MCHC 36.5, RDW 12.8, Plt Count 351, MPV 10.3, Gran % 93.1 H, Lymph % (Auto ) 2.1 L, [place] % (Auto) 4.8, Eos % (Auto) 0.0 L, Baso % (Auto) 0.0, Gran # 19.94 H, Lymph # 0.4 L, [place] # 1.0 H, Eos # 0.0, Baso # 0.01, Neutrophils % (Manual) 89 H, Band Neutrophils % 2, Lymphocytes % (Manual) 5 L, Monocytes % (Manual) 9 H , Platelet Evaluation Normal - RAD Interpretation Radiology Orders: 06/21/17 14:48 CHEST TWO VIEWS (PA/LAT) [RAD] Stat 06/21/17 14:51 ABD & PELVIS W/O PO OR IV CONT [CT] Stat 06/21/17 20:35 GALL BLADDER [US] Stat - EKG Interpretation Interpreted by ED Physician: Yes (NSR, flipped t waves avr, iii.) Type: 12 lead EKG - Medication Orders Current Medication Orders: Metronidazole (Flagyl) 500 mg in 100 mls @ 100 mls/hr IVPB STAT STA PRN Reason: Protocol Stop: 06/21/17 21:44 Sodium Chloride (Sodium Chloride 0.9%) 1,000 mls @ 40 mls/hr IV .Q24H ONE Stop: 06/22/17 14:45 Discontinued Medications Acetaminophen (Tylenol 325mg Tab) 975 mg PO STAT STA Stop: 06/21/17 14:53 Last Admin: 06/21/17 16:15 Dose: 975 mg MAR Pain/Vitals Document 06/21/17 16:15 EQ (Rec: 06/21/17 16:15 EQ [id number]) Pain Reassessment Is This A Pain ReAssessment? No Sleep Is patient sleeping during reassessment? No Presence of Pain Presence of Pain Yes Acetaminophen (Tylenol 650 Mg Supp) 650 mg RC STAT STA Stop: 06/21/17 15:55 Last Admin: 06/21/17 16:25 Dose: Not Given Non-Admin Reason: Patient Refused Sodium Chloride (Sodium Chloride 0.9%) 1,000 mls @ 150 mls/hr IV .Q6H40M ONE Stop: 06/21/17 21:25 Last Admin: 06/21/17 16:16 Dose: 150 mls/hr eMAR Start Stop Document 06/21/17 16:16 EQ (Rec: 06/21/17 16:16 EQ [id number]) Intravenous Solution Start Date 06/21/17 Start Time 16:16 Piperacillin Sod/Tazobactam Sod (Zosyn 4.5 Gm In Ns 100ml) 4.5 gm in 100 mls @ 200 mls/hr IVPB STAT STA PRN Reason: Protocol Stop: 06/21/17 16:21 Last Admin: 06/21/17 16:16 Dose: 200 mls/hr Comments: unable to scan med eMAR Start Stop Document 06/21/17 16:16 EQ (Rec: 06/21/17 16:16 EQ [id number]) Intravenous Solution Start Date 06/21/17 Start Time 16:16 Disposition/Present on Arrival - Present on Arrival Any Indicators Present on Arrival: No History of DVT/PE: No History of Uncontrolled Diabetes: No Urinary Catheter: No History of Decub. Ulcer: No History Surgical Site Infection Following: None - Disposition Have Diagnosis and Disposition been Completed?: Yes Diagnosis: Fever, Pneumonia, Pneumatosis intestinalis Disposition: HOSPITALIZED Disposition Time: 21:30 Patient Plan: Admission Condition: STABLE Referrals: Maurice Perez DO [Primary Care Provider] - Follow up with primary Forms: [employer] (Lithuanian)
[2017-06-21 15:23] LABS: VENOUS BLOOD GAS BASE EXCESS -0.5 mmol/L (0.0-2.0); VENOUS BLOOD GAS PO2 36 mm/Hg (30-55)
[2017-06-21 15:24] LABS: BASO # 0.01 K/mm3 (0.0-2.0); GRAN # 19.94 (1.4-6.5); GRAN % 93.1 % (50.0-68.0); HEMOGLOBIN 17.6 g/dL (14.0-18.0); LYMPH # 0.4 (1.2-3.4); LYMPH % 2.1 % (22.0-35.0); MEAN CORPUSCULAR HEMOGLOBIN 31.8 pg (25.0-35.0); MEAN CORPUSCULAR HGB CONC 36.5 g/dl (31.0-37.0); MEAN PLATELET VOLUME 10.3 fl (7.0-11.0); MONO % 4.8 % (1.0-6.0); PLATELET COUNT 351 10^3/uL (120.0-450.0); RBC 5.54 10^6/uL (3.5-6.1); RED CELL DISTRIBUTION WIDTH 12.8 % (11.5-14.5)
[2017-06-21 15:29] LABS: WHITE BLOOD COUNT 21.4 10^3/ul (4.5-11.0)
[2017-06-21] MEDS ORDERED: Piperacill/Tazo 4.5gm in NS 4.5 GM/100 ML BAG IVPB STA (15:52)
[2017-06-21 16:11] LABS: VENOUS BLOOD GAS PO2 52 mm/Hg (30-55)
[2017-06-21 16:24] LABS: INR 1.11 (0.93-1.08); PROTHROMBIN TIME 12.7 SECONDS (9.4-12.5)
[2017-06-21 16:25] LABS: PARTIAL THROMBOPLASTIN TIME 29.2 Seconds (25.1-36.5)
[2017-06-21 16:28] LABS: ALB/GLOB RATIO 1.1 (1.1-1.8); ALBUMIN 4.1 g/dL (3.0-4.8); ALT/SGPT 32 U/L (7-56); AST/SGOT 30 U/L (17-59); BLOOD UREA NITROGEN 16 mg/dL (7-21); CALCIUM 10.3 mg/dL (8.4-10.5); GFR AFRICAN-AMERICAN > 60; GFR NON-AFRICAN AMERICAN > 60; MAGNESIUM 1.9 mg/dL (1.7-2.2)
[2017-06-21 16:35] LABS: B-TYPE NATRIURETIC PEPTIDE 1500 pg/mL (0-450); TROPONIN I < 0.01 ng/mL
[2017-06-21 17:27] LABS: BAND 2 % (0-2); LYMPHOCYTE 5 % (22.0-35.0); MONOCYTE 9 % (1.0-6.0); NEUTROPHIL 89 % (50.0-70.0)
[2017-06-21 17:28] LABS: PLATELET ESTIMATE NORMAL (NORMAL)
--- NOTE | 2017-06-21 17:49 | RAD ---
HISTORY: 76yoM, alzheimers, with fever. COMPARISON: 05/14/2017 TECHNIQUE: Chest PA and lateral FINDINGS: LUNGS: Mild chronic interstitial changes are noted. There is increased bibasilar volume loss when compared to prior study. There may also be a subtle amount of increased vascular congestion, although a portion of this could be related to the poor expiratory effort. No focal infiltrate is seen. PLEURA: No significant pleural effusion identified. No pneumothorax apparent. CARDIOVASCULAR: Heart is unchanged in size. Aorta is stable. OSSEOUS STRUCTURES: No significant abnormalities. VISUALIZED UPPER ABDOMEN: There is prominent gastric air bubble appreciated. OTHER FINDINGS: None. IMPRESSION: Poor expiratory effort with probable crowding at the lung bases. Mild interstitial thickening which may suggest slight vascular congestion.
[2017-06-21 19:07] LABS: PH,URINE 6.5 (4.7-8.0); URINE BILIRUBIN NEGATIVE (NEGATIVE); URINE BLOOD SMALL (NEGATIVE); URINE GLUCOSE (UA) NEGATIVE (NEGATIVE); URINE LEUKOCYTE ESTERASE NEGATIVE Leu/uL (NEGATIVE); URINE NITRATE NEGATIVE (NEGATIVE); URINE PROTEIN 30 mg/dL (<30 mg/dL)
[2017-06-21 19:08] LABS: URINE APPEARANCE CLEAR (CLEAR); URINE COLOR YELLOW (YELLOW)
--- NOTE | 2017-06-21 19:19 | CT ---
EXAM: CT Abdomen and Pelvis Without Intravenous Contrast EXAM DATE/TIME: 06/21/2017 2:51 PM CLINICAL HISTORY: The patient age is 76 years old and is male; Pain; Abdominal pain; Flank; Right; Patient HX: 76yom, fever, right flank pain Facility exam id and description: Ct abdpelscon abd pelvis w/o po or iv cont TECHNIQUE: Axial computed tomography images of the abdomen and pelvis without intravenous contrast. All CT scans at this facility use one or more dose reduction techniques, viz.: automated exposure control; ma/kV adjustment per patient size (including targeted exams where dose is matched to indication; i.e. head); or iterative reconstruction technique. Coronal and sagittal reformatted images were created and reviewed. COMPARISON: CT - ABD PELVIS W/O PO OR IV CONT 2016-02-11 18:28 FINDINGS: Lower thorax: A consolidation is visualized within the right lower lobe posteriorly, consistent with atelectatic change or infiltrate. Additional atelectatic changes are seen within both lower lobes. ABDOMEN: Liver: Artifact limits evaluation of the liver. A few foci of hypodense gas are visualized within the anterior aspect of the liver, which are new and concerning for portal venous gas. Gallbladder and bile ducts: The gallbladder is distended. No discrete gallstones are visualized. There stranding of the adjacent to the gallbladder, which is likely infectious or inflammatory. Acalculous cholecystitis is considered. Pancreas: There is atrophy of the pancreas. Spleen: No splenomegaly. Adrenals: No mass. Kidneys and ureters: There is no hydronephrosis or obstructive calculi within the renal collecting systems bilaterally. Stomach and bowel: There is progressive distention of the cecum. Within the dependent submucosal region, multiple new small foci of gas are visualized within the cecum, concerning for pneumatosis. This can be associated with ischemic colitis. Pericolonic shadowing is identified within the right side the abdomen. Colonic diverticula are identified involving the left hemicolon, without acute inflammatory stranding of the adjacent mesentery. The stomach is distended. Appendix: Not visualized. PELVIS: Bladder: No stones. Reproductive: The prostate is enlarged. Calcifications are visualized within the prostate. ABDOMEN and PELVIS: Intraperitoneal space: No free air. Bones/joints: There is a moderate compression fracture of the L4 vertebral body, new compared to the prior study. Stable compression fractures are identified of T10 and L3. Vasculature: There is atherosclerotic calcification of the abdominal aorta. No abdominal aortic aneurysm. Lymph nodes: No enlarged lymph nodes. IMPRESSION: 1. There is progressive distention of the cecum. Within the dependent submucosal region of the cecum, multiple new small foci of gas are visualized within the cecum, concerning for pneumatosis. This can be associated with ischemic colitis. Pericolonic shadowing is identified within the right side the abdomen. 2. Diverticulosis. 3. The gallbladder is distended. No discrete gallstones are visualized. There stranding of the adjacent to the gallbladder, which is likely infectious or inflammatory. Acalculous cholecystitis is considered. Clinical correlation and ultrasonography are recommended. 4. A consolidation is visualized within the right lower lobe posteriorly, consistent with atelectatic change or infiltrate. Additional atelectatic changes are seen within both lower lobes. 5. The prostate is enlarged. 6. There is no hydronephrosis or obstructive calculi within the renal collecting systems bilaterally. 7. There is a moderate compression fracture of the L4 vertebral body, new compared to the prior study. Stable compression fractures are identified of T10 and L3. 8. A few foci of hypodense gas are visualized within the anterior aspect of the liver, which are new and concerning for portal venous gas. 9. The stomach is distended. 10. Additional CT findings described above.
[2017-06-21 19:37] LABS: URINE BACTERIA TRACE (NEG); URINE HYALINE CAST 0 - 2 /hpf; URINE RBC 0 - 2 /hpf (0-2); URINE WBC 0 - 2 /hpf (0-6)
[2017-06-21] MEDS ORDERED: metroNIDAZOLE IV 500 mg/100 ml 500 MG/100 ML BAG IVPB STA (20:45)
--- NOTE | 2017-06-22 00:11 | CP.PCM.CON ---
History of Present Illness - History of Present Illness History of Present Illness: General Surgery Consult note- Dr. Franco 76M pmhx significant for Alzheimers, COPD, dementia, HTN comes to [facility] by his and family for low grade fever of 99.0 to 100.0, dark uring, right flank discomfort and being less active than his baseline. Patient does not answer questions. is at bedside during encounter. Surgery was consulted for abd pain. Patient has approx one BM per day, last BM yesterday. ROS from at bedside. Denies: chills, night sweats, nausea, vomiting, diarrhea, numbness/ tingling in extremities PMH: COPD, alzheimers dementia (accelerated over the last 3 yeasrs), HTN, prostate, CVA PSH: denies ALL: NKDA SocialHx: former smoker. denies current tobacco, ETOH, Recreational drug use Review of Systems - Review of Systems All systems: reviewed and no additional remarkable complaints except - Constitutional Constitutional: As Per HPI Past Patient History - Infectious Disease Hx of Infectious Diseases: None - Tetanus Immunizations Tetanus Immunization: Unknown - Past Social History Smoking Status: Former Smoker - CARDIAC Hx Hypertension: Yes - PULMONARY Hx Chronic Obstructive Pulmonary Disease (COPD): Yes - NEUROLOGICAL HX Cerebrovascular Accident: Yes (TIA?) - HEENT Hx HEENT Problems: No - ENDOCRINE/METABOLIC Hx Diabetes Mellitus Type 1: No Hx Diabetes Mellitus Type 2: No - HEMATOLOGICAL/ONCOLOGICAL Hx Blood Disorders: No - INTEGUMENTARY Other/Comment: buttocks reddened - MUSCULOSKELETAL/RHEUMATOLOGICAL Hx Falls: Yes - GASTROINTESTINAL Hx Gastrointestinal Disorders: Yes (INCONTINENT,CONSTIPATION,COLITIS) - GENITOURINARY/GYNECOLOGICAL Hx Prostate Problems: Yes - PSYCHIATRIC Hx Depression: No Hx Emotional Abuse: No Hx Physical Abuse: No Hx Substance Use: No - SURGICAL HISTORY Hx Surgeries: No - ANESTHESIA Hx Anesthesia: No Meds Allergies/Adverse Reactions: Allergies Allergy/AdvReac Type Severity Reaction Status Date / Time No Known Allergies Allergy Verified 06/21/17 13:12 - Medications Medications: Current Medications Sodium Chloride (Sodium Chloride 0.9%) 1,000 mls @ 40 mls/hr IV .Q24H ONE Stop: 06/22/17 14:45 Last Admin: 06/21/17 21:29 Dose: 40 mls/hr Physical Exam - Constitutional Appears: Non-toxic, No Acute Distress, Chronically Ill - Head Exam Head Exam: ATRAUMATIC - Eye Exam Additional comments: sluggish pupil reaction - Respiratory Exam Respiratory Exam: NORMAL BREATHING PATTERN. absent: Accessory Muscle Use, Respiratory Distress - Cardiovascular Exam Cardiovascular Exam: +S1, +S2. absent: Bradycardia, Tachycardia - GI/Abdominal Exam GI & Abdominal Exam: Distended, Soft. absent: Firm, Guarding, Hernia, Mass, Rigid, Tenderness Additional comments: unable to perform proper sargent sign distended, typanic, no tenderness to palpation in RUQ - Neurological Exam Neurological exam: Altered - Skin Skin Exam: Intact, Warm Results - Vital Signs Recent Vital Signs: Last Vital Signs Temp 99 F 06/21/17 22:50 Pulse 88 06/21/17 22:50 Resp 20 06/21/17 22:50 BP 131/74 06/21/17 22:50 Pulse Ox 96 06/21/17 22:50 - Labs Result Diagrams: 06/21/17 15:00 06/21/17 16:00 Assessment & Plan - Assessment and Plan (Free Text) Assessment: 76M hx of Alzheimer dementia; w/ b/l lower lobe infiltrate indicative of atalectasis, reported generalized abd pain. R/O cholecystitis CT: distended GB; SMA and celiac patent, however difficult to completely assess w/o IV contrast T.Bili and liver enzymes normal Plan: - IVF and Abx - pain control and anti-emetic PRN - ABD US for poss. GB pathology - possible HIDA scan w/ CCK to determine acalculous cholecystitis - spoke with the family if surgical intervention were to be required, family may not wish to proceed w/ surgery - serial abd exams - f/u AM labs - further recs per Dr. Franco surgical attending Theo Bell PGY1
--- NOTE | 2017-06-22 00:34 | US ---
EXAM: US Abdomen Limited, Right Upper Quadrant EXAM DATE/TIME: 06/21/2017 8:35 PM CLINICAL HISTORY: The patient age is 76 years old and is male; Pain; Abdominal pain; Other: Ruq; Additional info: 76yom, with wbc 21, CT with gallbladder stranding. Facility exam id and description: Us gb gall bladder TECHNIQUE: Real-time ultrasound of the right upper quadrant with image documentation. COMPARISON: CT - ABD PELVIS W/O PO OR IV CONT 2017-06-21 17:40 FINDINGS: Liver: The liver measures 13.4 cm in length. Within the right hepatic lobe, there is a 0.9 x 0.8 x 0.9 cm hypoechoic lesion. Artifact on the prior CT limits comparison. Gallbladder: The gallbladder is distended. Shadowing gallstones are visualized as well as significant isoechoic sludge. There is gallbladder wall thickening with hypoechoic wall edema or pericholecystic fluid. These findings are suggestive of acute cholecystitis. Common bile duct: The common bile duct measures 4-5 mm, which is within normal limits. Pancreas: The pancreas is not visualized. Right kidney: There is a small amount of hypoechoic perinephric fluid. The right kidney measures 9.6 x 4.4 x 6.5 cm. There is no hydronephrosis of the right kidney. No shadowing stones. IMPRESSION: 1. The gallbladder is distended. Shadowing gallstones are visualized as well as significant sludge. There is gallbladder wall thickening with hypoechoic wall edema or pericholecystic fluid. These findings are suggestive of acute cholecystitis. Clinical correlation is recommended. 2. There is a small amount of hypoechoic perinephric fluid. Clinical correlation is recommended to exclude pyelonephritis. 3. Within the right hepatic lobe, there is a 0.9 x 0.8 x 0.9 cm hypoechoic lesion. 4. Additional findings described above.
[2017-06-22] MEDS ORDERED: Morphine 2 mg/ml ISec IVP PRN (06:00)
[2017-06-22 07:22] LABS: BASO # 0.01 K/mm3 (0.0-2.0); GRAN # 19.7 (1.4-6.5); GRAN % 89.3 % (50.0-68.0); HEMOGLOBIN 14.6 g/dL (14.0-18.0); LYMPH # 0.4 (1.2-3.4); LYMPH % 1.9 % (22.0-35.0); MEAN CELL VOLUME 87.6 fl (80.0-105.0); MEAN CORPUSCULAR HEMOGLOBIN 30.7 pg (25.0-35.0); MEAN PLATELET VOLUME 9.4 fl (7.0-11.0); MONO % 8.8 % (1.0-6.0); RBC 4.76 10^6/uL (3.5-6.1); WHITE BLOOD COUNT 22.1 10^3/ul (4.5-11.0)
[2017-06-22 08:00] LABS: ALB/GLOB RATIO 1.1 (1.1-1.8); ALBUMIN 3.8 g/dL (3.0-4.8); ALT/SGPT 24 U/L (7-56); AST/SGOT 42 U/L (17-59); BLOOD UREA NITROGEN 19 mg/dL (7-21); CALCIUM 10.1 mg/dL (8.4-10.5); GFR AFRICAN-AMERICAN > 60; GFR NON-AFRICAN AMERICAN > 60
--- NOTE | 2017-06-22 09:59 | CARD ---
APPROVED REPORT EKG Measurement Heart [id number] CT [id number] <Conclusion> Normal sinus rhythm Q in lll Normal ECG No change
[2017-06-22] MEDS: Piperacillin/Tazobact 3.375 gm 100 ML IVPB SCH ×2 (10:59→17:31)
[2017-06-22] MEDS ORDERED: Piperacillin/Tazobact 3.375 gm 100 ML IVPB SCH (12:00)
[2017-06-23] MEDS: Piperacillin/Tazobact 3.375 gm 100 ML IVPB SCH ×5 (00:29→23:25)
--- NOTE | 2017-06-23 01:02 | HP ---
HISTORY OF PRESENT ILLNESS: I know him for many years. I do house calls on him, I know the very well. They brought him in to the [facility] because he is having dark urine, right-sided flank discomfort, no other symptoms, occasional cough. He is a nice 76-year-old male with a history of end-stage Alzheimer's disease, hypertension, COPD, TIAs in the past, falls, incontinence of stool and urine, constipation, colitis history, prostate problem history with elevated PSAs from time to time. FAMILY HISTORY: No known family history. SOCIAL HISTORY: Former smoker, used to drink alcohol but quit both those now. No drugs. ALLERGIES: NO KNOWN DRUG ALLERGIES. MEDICATIONS: He is on lisinopril, Flomax for his BPH, Zestril for his hypertension. REVIEW OF SYSTEMS: Eyes are open, he is looking at, he is really pretty much nonverbal. He will talk every now and then, in no apparent distress actually. No acute vision or hearing changes assessed. No apparent chest pain. He got congestion on the lungs, occasionally bringing up phlegm. No chest pain or palpitations. He has right flank pain, some dark urine. Skin for the most part is intact. His buttocks gets red at times. No anxiety or depression. PHYSICAL EXAMINATION: VITAL SIGNS: He has a 100.4 temperature, 96 pulse, 18 respiratory rate, 122/76 blood pressure, and 98% O2 saturation on room air. GENERAL: He is alert, confused at his baseline, well appearing, nontoxic. HEENT: Head is atraumatic, normocephalic. Extraocular muscles are intact. Pupils are reactive to light. Throat is moist. NECK: Supple. HEART: Regular rate. LUNGS: Decreased breath sounds, fair congestion bilaterally. ABDOMEN: Soft. No tenderness. No guarding, rebound or CVA tenderness at all. Positive bowel sounds. EXTREMITIES: No edema. SKIN: For the most part is intact. NEURO: Alert to person nonverbal. LYMPH: Thyroid midline. No appreciable lymphadenopathy. LABORATORY DATA: He has a negative for flu. 125 sodium, 4.9 potassium, BUN 90, creatinine 1, GFR is greater than 60, sugar is 110, calcium is 10.1, phosphorous is 3, magnesium 1.9, total bilirubin is 1.1, AST is 42, ALT is 24, alkaline phosphatase is 88. Troponin I is less than 0.01. BNP was high at 1500, total protein is 7.2. He came in with a 21,000 white count, went up to 22.1, 14.6 hemoglobin, 41.7 hematocrit with 260 platelets. Urine was clean. negative for flu. He had multiple tests. He has an EKG showed normal sinus rhythm. He has a chest x-ray which shows poor expiratory effort with probable crowding of the lung bases, mild interstitial thickening, slight vascular congestion. CAT scan of the abdomen and pelvis, progressive distention of the cecum, diverticulosis, gallbladder distended, it could be infectious or inflammatory acalculous cholecystitis is considered, prostate enlarged, no hydronephrosis, so we went for an ultrasound of the gallbladder and that showed gallbladder is distended, acute cholecystitis, he also has a lesion in the liver. I called in GI, Surgery, Pulmonary, Infectious Disease. We will continue with aggressive treatment and care with IV antibiotics. The family does not want surgery that could be a problem, he might need it. He is on metronidazole IV and Zosyn IV and IV fluids. Hopefully, he will do well. Maurice Perez DO JOSE
--- NOTE | 2017-06-23 04:18 | CON ---
DATE: 06/22/2017 LOCATION: The patient is seen in room 578. CHIEF COMPLAINT: Weakness times several days. HISTORY OF PRESENT ILLNESS: This is a 76-year-old male with past medical history significant for hypertension, Alzhemier's dementia, chronic obstructive lung disease, dyslipidemia, who was admitted to the emergency room with a diagnosis of fever and pneumonia. Infectious Disease consultation requested. The patient is a poor historian, and the patient was seen in the emergency room by who states the patient was admitted with having fevers and congestion, dark urine, right-sided flank pain, and the patient did have a fever in the emergency room and was diagnosed with fever, pneumonia, pneumatosis intestinalis, and Infectious Disease consultation requested for antibiotic choice reported and no chest pain, mild shortness of breath, no cough, no hemoptysis. PAST MEDICAL HISTORY: Significant for hypertension, dyslipidemia, Alzhemier's dementia, TIA, CVA, chronic obstructive lung disease, seizures, and prostate disease. PAST SURGICAL HISTORY: Noncontributory. ALLERGIES: THE PATIENT HAS NO KNOWN ALLERGIES. MEDICATIONS: At home reveals the patient to be on lisinopril and tamsulosin which is Flomax. PHYSICAL EXAMINATION: VITAL SIGNS: The patient is in bed, in no acute distress with a temperature of 99, T-max was 100.4, heart rate of 91, it was up to 96, respiratory rate 20, blood pressure is 130/70. HEENT: Examination of HEENT is unremarkable. NECK: Supple. LUNGS: Have decreased breath sounds. HEART: Normal S1 and S2. ABDOMEN: There is mild tenderness, no rebound, no guarding, no masses and no CVA tenderness. LABORATORY EXAMINATION: Reveals a white count of 21,000, hemoglobin of 17, 93% granulocytosis. Coagulation is noted. Blood gases are noted. Chemistry reveals a BUN of 16, creatinine of 1.0, glucose is 158, BNP is 1500. Urinalysis revealed 0 to 2 wbc's. Influenza is negative. Microbiology reveals blood cultures are negative, and CAT scan of the abdomen and pelvis read by Dr. Nicolás Wolff with a consolidation within the right lower lobe posteriorly consistent with atelectic changes and progressive distention of the cecum, gallbladder is distended. The patient also had abdominal gallbladder ultrasound which showed gallstones are visualized, distended gallbladder, there is gallbladder wall thickening with echogenic wall edema or pericholecystic fluid suggestive of acute cholecystitis, common bile duct measures 4 to 5 mm. The patient's LFTs are within normal limits. Urine cultures are pending. ASSESSMENT AND PLAN: The patient is a 76-year-old male with hypertension, dyslipidemia, Alzhemier's, transient ischemic attack, cerebrovascular accident, dementia, chronic obstructive pulmonary disease, seizures, prostate, sepsis, acute cholecystitis, and we will treat the patient with Zosyn, surgical consultation and GI consultation is requested. We will order a procalcitonin. I doubt a consolidation in the CAT scan is of significance. LFTs are normal. We will follow closely with you. The patient's chest x-ray is reported to be with interstitial changes, and we will add doxycycline and request urine for legionella, sputum culture. We will follow closely with you. We will treat the patient with doxycycline and , pending initial workup results and another consultants input, we should consider HIDA scan. We will order a HIDA scan also. Ambrosio Bhatti MD
--- NOTE | 2017-06-23 07:11 | CP.PCM.CON ---
History of Present Illness - History of Present Illness History of Present Illness: GI Consult Note: 76M with PMHx of CVA, Alzheimers dementia, COPD, HTN, and constipation presents to the ED accompanied by his for chest congestion, fever, abdominal distention, and dark urine. Patient unable to provide additional details due to history of dementia, information obtained from at bedside and nursing staff. As per the patients the patient has been less active from his baseline recently. He has been having chest congestion and low grade fevers of 99-100F' at home. She noticed that thet patients abdomen has been more distended in the past few days. Patient has approx one BM per day, last BM yesterday. There was no reported nausea, vomiting, fever/chills, rectal bleeding , or weight loss. In the ED lab work showed leukocytosis 21.4, electrolyte disturbance, normal LFTs. CT abd/pelvis was done and showed small foci of gas in the cecum concerning of pneumatosis, changes concerning for acalculous cholecystitis, diverticulosis, and a few foci of hypodense gas in the anterior liver concerning of portal venous gas, and moderate compression fracture of L4. Abd US showed changes concerning of acute cholecystitis and R hepatic lobe 0.9x 0.8 x 0.9 hypoechoic lesion. GI team was consulted for liver lesion. 12 Point ROS limited due to patients history or dementia PMH: COPD, alzheimers dementia (accelerated over the last 3 years), HTN, CVA? PSH: denies ALL: NKDA Med: refer to [facility] SocialHx: former smoker. denies current tobacco, ETOH, Recreational drug use Endo Hx: Unknown Review of Systems - Review of Systems All systems: reviewed and no additional remarkable complaints except Past Patient History - Infectious Disease Hx of Infectious Diseases: None - Tetanus Immunizations Tetanus Immunization: Unknown - Past Social History Smoking Status: Former Smoker - CARDIAC Hx Hypertension: Yes - PULMONARY Hx Chronic Obstructive Pulmonary Disease (COPD): Yes - NEUROLOGICAL HX Cerebrovascular Accident: Yes (TIA?) - HEENT Hx HEENT Problems: No - ENDOCRINE/METABOLIC Hx Diabetes Mellitus Type 1: No Hx Diabetes Mellitus Type 2: No - HEMATOLOGICAL/ONCOLOGICAL Hx Blood Disorders: No - INTEGUMENTARY Other/Comment: buttocks reddened - MUSCULOSKELETAL/RHEUMATOLOGICAL Hx Falls: Yes - GASTROINTESTINAL Hx Gastrointestinal Disorders: Yes (INCONTINENT,CONSTIPATION,COLITIS) - GENITOURINARY/GYNECOLOGICAL Hx Prostate Problems: Yes - PSYCHIATRIC Hx Depression: No Hx Emotional Abuse: No Hx Physical Abuse: No - SURGICAL HISTORY Hx Surgeries: No - ANESTHESIA Hx Anesthesia: No Meds Allergies/Adverse Reactions: Allergies Allergy/AdvReac Type Severity Reaction Status Date / Time No Known Allergies Allergy Verified 06/21/17 13:12 - Medications Medications: Current Medications Albuterol/Ipratropium (Duoneb 3 Mg/0.5 Mg (3 Ml) Ud) 3 ml IH Q2H PRN PRN Reason: Shortness of Breath Albuterol/Ipratropium (Duoneb 3 Mg/0.5 Mg (3 Ml) Ud) 3 ml IH [id number] AZALIA Budesonide (Pulmicort Respules) 0.5 mg IH [id number] AZALIA Doxycycline Hyclate (Doryx) 100 mg PO Q12 AZALIA PRN Reason: Protocol Stop: 07/01/17 22:01 Last Admin: 06/22/17 21:31 Dose: Not Given Piperacillin Sod/Tazobactam Sod (Zosyn 3.375 In Ns 100ml) 100 mls @ 200 mls/hr IVPB Q6 AZALIA PRN Reason: Protocol Stop: 07/01/17 12:01 Last Admin: 06/23/17 06:31 Dose: 200 mls/hr Sodium Chloride (Sodium Chloride 0.9%) 1,000 mls @ 100 mls/hr IV .Q10H AZALIA Morphine Sulfate (Morphine) 1 mg IVP Q4H PRN PRN Reason: Pain, moderate (4-7) Ondansetron HCl (Zofran Inj) 4 mg IVP Q4H PRN PRN Reason: Nausea/Vomiting Physical Exam - Constitutional Appears: No Acute Distress - Head Exam Head Exam: ATRAUMATIC, NORMOCEPHALIC - Eye Exam Eye Exam: EOMI - ENT Exam ENT Exam: Mucous Membranes Moist - Respiratory Exam Respiratory Exam: Clear to Auscultation Bilateral. absent: Wheezes - Cardiovascular Exam Cardiovascular Exam: REGULAR RHYTHM, RRR, +S1, +S2 - GI/Abdominal Exam GI & Abdominal Exam: Normal Bowel Sounds, Soft - Extremities Exam Extremities exam: Negative for: calf tenderness, pedal edema - Neurological Exam Neurological exam: Alert, Oriented x3 - Psychiatric Exam Psychiatric exam: Normal Affect, Normal Mood - Skin Skin Exam: Dry, Intact, Warm Results - Vital Signs Recent Vital Signs: Last Vital Signs Temp 99.2 F 06/22/17 07:30 Pulse 84 06/22/17 07:30 Resp 18 06/22/17 07:30 BP 122/75 06/22/17 07:30 Pulse Ox 93 L 06/22/17 07:30 - Labs Result Diagrams: 06/23/17 07:45 06/23/17 07:45 Labs: Laboratory Results - last 24 hr 06/22/17 06/22/17 06/22/17 06:15 06:15 07:00 WBC 22.1 H RBC 4.76 Hgb 14.6 D Hct 41.7 L MCV 87.6 MCH 30.7 MCHC 35.0 RDW 13.0 Plt Count 260 MPV 9.4 Gran % 89.3 H Lymph % (Auto) 1.9 L [place] % (Auto) 8.8 H Eos % (Auto) 0.0 L Baso % (Auto) 0.0 Gran # 19.70 H Lymph # 0.4 L [place] # 2.0 H Eos # 0.0 Baso # 0.01 Sodium 125 L Potassium 4.9 Chloride 92 L Carbon Dioxide 22 Anion Gap 16 BUN 19 Creatinine 1.0 Est GFR ( Amer) > 60 Est GFR (Non-Af Amer) > 60 Random Glucose 110 Calcium 10.1 Total Bilirubin 1.1 AST 42 ALT 24 Alkaline Phosphatase 88 Total Protein 7.2 Albumin 3.8 Globulin 3.4 Albumin/Globulin Ratio 1.1 Procalcitonin 1.15 H Assessment & Plan - Assessment and Plan (Free Text) Assessment: 76M with PMHx of CVA, Alzheimers dementia, COPD, HTN, and constipation presents to the ED accompanied by his for chest congestion, low grade fever , abdominal distention, and dark urine. Patient fund to have leukocytosis, electrolyte abnormalities, changes concerning for cholecystitis and a new liver lesion. 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 Pt does not have any signs of acute abdomen. Will cont to monitor. AFP and hepatitis panel ordered Antibiotics as per ID - Doxy and Zosyn Fluid Hydration - NS @ 100 Antiemetics as needed Pain control F/u Surgical consult recs Case and plan was reviewed and discussed in detail with Dr Souza.
--- NOTE | 2017-06-23 08:02 | CON ---
DATE: 06/23/2017 PULMONARY CONSULTATION REFERRING PHYSICIAN: Dr. Maurice Perez REASON FOR CONSULTATION: Pneumonia. HISTORY OF PRESENT ILLNESS: History is obtained via extensive discussion with the night nurse. I have also reviewed the case with the at length. The patient does have a history of dementia and is not an adequate historian. The patient is a 76-year-old chronically ill male, with past medical history significant for chronic obstructive pulmonary disease, cerebrovascular accident in the past, advanced dementia, hypertension, hyperlipidemia, who presents to [facility] with main complaints of worsening abdominal pain and distention for the past 1 day. In addition to the above, the patient did present with a history of fever. He was thus admitted for additional evaluation. Again, I did discuss the case with the at length. The denies that her is short of breath at rest or dyspneic on exertion. The also states that her has a chronic cough - not new. He does produce occasional sputum. There is no history of chest pain, coughing up of blood, or chest pain - made worse with deep respirations. The patient did present to the hospital with fevers. No history of chills or infectious exposure. No history of night sweats, weight loss or appetite change prior to the above events. No history of calf pains. No history of syncope or diaphoresis. No history of recent travel or trauma. REVIEW OF SYSTEMS: No history of nausea, vomiting or diarrhea. No acute urinary symptoms. No new neurologic or musculoskeletal complaints. Rest of the review of systems negative. ALLERGIES: NO KNOWN ALLERGIES. SOCIAL HISTORY: Positive for tobacco and negative for alcohol. FAMILY HISTORY: No inheritable diseases. HOME MEDICATIONS: Include Flomax and Zestril. PHYSICAL EXAMINATION: GENERAL: The patient is not short of breath at rest. He is not using accessory muscles for breathing. VITAL SIGNS: (Last noted in the computer): Temperature is 99.2, pulse 84, respirations 18, blood pressure 122/75. Oxygen saturation on room air is between 93-96%. HEENT: Normocephalic, atraumatic. NECK: No JVD. CARDIOVASCULAR: Systolic ejection murmur at the lower left sternal border. No S3 gallop. LUNGS: Crackles noted at the right base. Minimal bilateral rhonchi. No wheezing. EXTREMITIES: Mild edema. No cyanosis, no clubbing. Calves are nontender to palpation. GI: Abdomen is soft. It is mildly distended and nontender to palpation. Bowel sounds are positive. SKIN: No acute rash. NEUROLOGIC: Exam limited at the present time. PERTINENT LABORATORY DATA: CAT scan of the abdomen and pelvis was done on 06/21/2017 and reviewed. The gallbladder is distended. No discrete gallstones are visualized. Acalculous cholecystitis is considered. There is also progressive distention of the cecum. There is also a patchy right lower lobe infiltrate with air bronchograms noted. CBC: White count 22.1, hemoglobin 14.6, hematocrit 41.7, platelets of 260,000. Complete metabolic profile: Sodium 125, chloride 92, glucose 152. Rest of the metabolic profiles within normal limits. Procalcitonin is positive at 1.15. IMPRESSION: 1. Rule out acute cholecystitis. 2. Probable right lower lobe pneumonia. 3. Chronic obstructive pulmonary disease. 4. Advanced dementia. 5. Mild bronchospasm. PLAN: Again, I did discuss the case with the at length. I have also reviewed the chart,and discussed the case with the night nurse at length. The patient presents to [facility] with main complaint of increasing abdominal pain and distention for the past 2 days. In addition, the patient did present with a low-grade fever. I did question the at length regarding the patient's pulmonary symptoms. Other than a chronic cough, she offers no new or significant pulmonary symptoms. I did review the CAT scan of the abdomen and pelvis. Acute cholecystitis is considered. Cecal distention is also noted. Lastly, there is a patchy right lower lobe infiltrate with air bronchograms - possibly consistent with pneumonia. In addition, the procalcitonin is slightly elevated. I would continue with the antibiotic coverage as per Infectious Disease. Input by Dr. Bhatti is noted. The temperatures are now resolving. On physical exam, there is mild bronchospasm noted. There is no significant alveolar-arterial gradient. I will start the patient on DuoNeb treatments and inhaled Pulmicort. Surgical evaluation is ordered. Biliary scan is also ordered. I will also order aspiration precautions - given the abdominal distention. The patient does state to feeling better this morning - compared to the past few days. He is somewhat clinically improved. I will discuss the above with Dr. Perez later this morning. Thank you very much for this pulmonary consultation. Cory Acevedo MD [facility] # [id number] JOSE
[2017-06-23 08:05] LABS: HEMOGLOBIN 13.1 g/dL (14.0-18.0); MEAN CELL VOLUME 88.9 fl (80.0-105.0); MEAN CORPUSCULAR HEMOGLOBIN 30.3 pg (25.0-35.0); MEAN PLATELET VOLUME 9.5 fl (7.0-11.0); RBC 4.33 10^6/uL (3.5-6.1); RED CELL DISTRIBUTION WIDTH 13.3 % (11.5-14.5); WHITE BLOOD COUNT 16.6 10^3/ul (4.5-11.0)
[2017-06-23 08:19] LABS: ALBUMIN 3.2 g/dL (3.0-4.8); ALT/SGPT 32 U/L (7-56); AST/SGOT 35 U/L (17-59); BLOOD UREA NITROGEN 35 mg/dL (7-21); CALCIUM 9.7 mg/dL (8.4-10.5); GFR AFRICAN-AMERICAN > 60; GFR NON-AFRICAN AMERICAN > 60
[2017-06-23] MEDS: Albuterol-Ipratrop 3 mg / 0.5 (3 ml) UD IH SCH ×3 (08:58→21:36)
[2017-06-23] MEDS: Budesonide 0.5 mg/2 ml Inhal Susp UD IH SCH ×2 (08:58→21:36)
--- NOTE | 2017-06-23 09:04 | CP.PCM.PN ---
Subjective - Date & Time of Evaluation Date of Evaluation: 06/23/17 Time of Evaluation: 09:00 - Subjective Subjective: General Surgery Consult Progress note- Dr. Franco Patient has been seen and examined. Patient is non-verbal so interview was from . Soft bowel movement in the AM. The is still unsure if she want the patient to have surgery Objective - Vital Signs/Intake and Output Vital Signs (last 24 hours): Temp Pulse Resp BP Pulse Ox 99.2 F 84 18 122/75 93 L 06/22/17 07:30 06/22/17 07:30 06/22/17 07:30 06/22/17 07:30 06/22/17 07:30 Intake and Output: 06/23/17 06/23/17 06:59 18:59 Intake Total 0 Balance 0 - Medications Medications: Current Medications Albuterol/Ipratropium (Duoneb 3 Mg/0.5 Mg (3 Ml) Ud) 3 ml IH Q2H PRN PRN Reason: Shortness of Breath Albuterol/Ipratropium (Duoneb 3 Mg/0.5 Mg (3 Ml) Ud) 3 ml IH [id number] [facility] Last Admin: 06/23/17 08:58 Dose: 3 ml Budesonide (Pulmicort Respules) 0.5 mg IH [id number] [facility] Last Admin: 06/23/17 08:58 Dose: 0.5 mg Doxycycline Hyclate (Doryx) 100 mg PO Q12 AZALIA PRN Reason: Protocol Stop: 07/01/17 22:01 Last Admin: 06/22/17 21:31 Dose: Not Given Piperacillin Sod/Tazobactam Sod (Zosyn 3.375 In Ns 100ml) 100 mls @ 200 mls/hr IVPB Q6 AZALIA PRN Reason: Protocol Stop: 07/01/17 12:01 Last Admin: 06/23/17 06:31 Dose: 200 mls/hr Sodium Chloride (Sodium Chloride 0.9%) 1,000 mls @ 100 mls/hr IV .Q10H AZALIA Morphine Sulfate (Morphine) 1 mg IVP Q4H PRN PRN Reason: Pain, moderate (4-7) Ondansetron HCl (Zofran Inj) 4 mg IVP Q4H PRN PRN Reason: Nausea/Vomiting - Labs Labs: 06/23/17 07:45 06/23/17 07:45 PT 12.7 SECONDS (9.4-12.5) H 06/21/17 15:00 INR 1.11 (0.93-1.08) H 06/21/17 15:00 APTT 29.2 Seconds (25.1-36.5) 06/21/17 15:00 - Constitutional Appears: Non-toxic, No Acute Distress, Chronically Ill - Head Exam Head Exam: ATRAUMATIC - Respiratory Exam Respiratory Exam: NORMAL BREATHING PATTERN. absent: Accessory Muscle Use, Respiratory Distress - Cardiovascular Exam Cardiovascular Exam: +S1, +S2. absent: Bradycardia, Tachycardia - GI/Abdominal Exam GI & Abdominal Exam: Distended, Soft. absent: Firm, Guarding, Rigid, Tenderness , Mass - Rectal Exam Rectal Exam: NORMAL INSPECTION. absent: Black Stool, Bloody Stool, Hemorrhoids , Fecal Impaction - Neurological Exam Neurological Exam: Altered - Skin Skin Exam: Intact, Warm Assessment and Plan - Assessment and Plan (Free Text) Assessment: 76M hx of Alzheimer dementia; w/ b/l lower lobe infiltrate indicative of atalectasis, reported generalized abd pain. R/O cholecystitis Abd/Pelvis CT (06/21/17): distended GB; SMA and celiac patent, however difficult to completely assess w/o IV contrast Gallbladder US (06/21/17): 1. The gallbladder is distended. Shadowing gallstones are visualized as well as significant sludge. There is gallbladder wall thickening with hypoechoic wall edema or pericholecystic fluid. These findings are suggestive of acute cholecystitis. Clinical correlation is recommended. 2. There is a small amount of hypoechoic perinephric fluid. Clinical correlation is recommended to exclude pyelonephritis. 3. Within the right hepatic lobe, there is a 0.9 x 0.8 x 0.9 cm hypoechoic lesion. T.Bili and Liver Enzymes normal. Plan: - IVF and Abx - pain control and anti-emetic PRN - HIDA Scan - POSITIVE - Liver CT - Shows small simple cyst. - No BRBPR during rectal exam. - family may not wish to proceed w/ surgery - Possible CT tube - serial abd exams - further recs per Dr. Franco surgical attending Valdez Acosta - PGY1
--- NOTE | 2017-06-23 09:51 | PN ---
DATE: SUBJECTIVE: He is resting right now in bed. The is with him. He is congested, worried about a gallbladder issue. He is on IV antibiotics. He has a history of CVA, Alzheimer disease, dementia, COPD, hypertension, constipation, pneumonia, aspiration possibly swallow issues and now possible acute cholecystitis. Family does not want surgery at this time. PHYSICAL EXAMINATION: VITAL SIGNS: He is having a 99.2 temperature, 84 pulse, 122/75 blood pressure, 18 respiratory rate, 92% O2 sat on room air. HEENT: Head is atraumatic, normocephalic. Throat is dry. NECK: Supple. HEART: Regular rate. LUNGS: Decreased breath sounds. Congestion bilaterally. ABDOMEN: Soft, nontender. EXTREMITIES: No edema. MEDICATIONS: He is currently on Doryx, DuoNeb, morphine, Pulmicort, IV fluids, Zofran and Zosyn. LABORATORY DATA: He has a 16.6 white count, it came down from 22, that is better, hemoglobin 13.1, hematocrit 38.5, platelets 304. He has 125 sodium, little bit better, 4.9 potassium, BUN is 90, creatinine 1, GFR is greater than 60, sugar is 110, calcium is 10.1, total bili is 1.1, AST is 42, ALT is 24, alk phos is 88, total protein 7.2. His procalcitonin is 1.15, high. Urine was clean. Negative for the flu. No growth in blood. ASSESSMENT AND PLAN: He is being seen by Surgery, Pulmonology, Infectious Disease. We will continue with aggressive treatment and care. Acute cholecystectomy, sepsis, liver lesion, dementia, chronic obstructive pulmonary disease, right lower lobe pneumonia. Wait and see what GI thinks about the liver lesion. Maurice Perez DO
[2017-06-23] MEDS: Sodium Chloride 0.9% 1,000 ML IV SCH (12:53)
--- NOTE | 2017-06-23 15:31 | CT ---
PROCEDURE: CT Abdomen without intravenous contrast HISTORY: Evaluate liver lesion COMPARISON: Ultrasound of the abdomen 06/22/2017 TECHNIQUE: Axial images of the abdomen from lung bases to iliac crest without intravenous contrast enhancement. Coronal and sagittal reformats generated. Oral contrast was administered. Radiation dose: Total exam DLP = 1575 mGy-cm. This CT exam was performed using one or more of the following dose reduction techniques: Automated exposure control, adjustment of the mA and/or kV according to patient size, and/or use of iterative reconstruction technique. FINDINGS: LOWER THORAX: There is dense consolidation at the right lung base. There is a small right effusion LIVER: There is a small simple cyst adjacent to the gallbladder fossa in the posterior right lobe of the liver. This measures 9 x 12 mm. GALLBLADDER AND BILE DUCTS: The gallbladder is distended and filled with sludge. This was better demonstrated on ultrasound. Inflammatory changes are seen adjacent to the gallbladder suspicious for acute cholecystitis. PANCREAS: Unremarkable. No gross lesion or ductal dilatation. SPLEEN: Unremarkable. ADRENALS: Unremarkable. No mass. KIDNEYS AND URETERS: Unremarkable. No hydronephrosis. No solid mass. VASCULATURE: Unremarkable. No aortic aneurysm. BOWEL: Unremarkable. No obstruction. No gross mural thickening. APPENDIX: Normal appendix. PERITONEUM: Unremarkable. No free fluid. No free air. LYMPH NODES: Unremarkable. No enlarged lymph nodes. BONES: No acute fracture. OTHER FINDINGS: None. IMPRESSION: Distended gallbladder with surrounding inflammatory changes consistent with acute cholecystitis. Small simple cyst in the right lobe of the liver
--- NOTE | 2017-06-23 15:33 | NM ---
PROCEDURE: Nuclear Medicine Hepatobiliary Scan HISTORY: r/o acute choly COMPARISON: None available. TECHNIQUE: 6.4 mCi of technetium 99m Mebrofenin was administered intravenously. Planar images of the abdomen were obtained at 5 min intervals to 60 mins. Delayed images were also obtained. FINDINGS: LIVER: Timely and homogenous uptake. COMMON BILE DUCT: identified at 15 mins. GALLBLADDER: Nonvisualization of the gallbladder even on 4 hour delayed imaging SMALL BOWEL: Identified at 30 mins. IMPRESSION: Nonvisualization of the gallbladder consistent with acute cholecystitis
--- NOTE | 2017-06-23 17:00 | CP.PCM.PN ---
Subjective - Date & Time of Evaluation Date of Evaluation: 06/23/17 Time of Evaluation: 12:55 - Subjective Subjective: Patient is for HIDA scan today. Objective - Vital Signs/Intake and Output Vital Signs (last 24 hours): Temp Pulse Resp BP Pulse Ox 98.6 F 88 18 170/100 H 95 06/23/17 08:00 06/23/17 08:00 06/23/17 08:00 06/23/17 16:22 06/23/17 08:00 Intake and Output: 06/23/17 06/23/17 06:59 18:59 Intake Total 0 Balance 0 - Medications Medications: Current Medications Albuterol/Ipratropium (Duoneb 3 Mg/0.5 Mg (3 Ml) Ud) 3 ml IH Q2H PRN PRN Reason: Shortness of Breath Albuterol/Ipratropium (Duoneb 3 Mg/0.5 Mg (3 Ml) Ud) 3 ml IH [id number] [facility] Last Admin: 06/23/17 13:52 Dose: Not Given Budesonide (Pulmicort Respules) 0.5 mg IH [id number] [facility] Last Admin: 06/23/17 08:58 Dose: 0.5 mg Clonidine HCl (Catapres) 0.1 mg PO BID [facility] Last Admin: 06/23/17 16:22 Dose: 0.1 mg Doxycycline Hyclate (Doryx) 100 mg PO Q12 AZALIA PRN Reason: Protocol Stop: 07/01/17 22:01 Last Admin: 06/23/17 16:22 Dose: 100 mg Piperacillin Sod/Tazobactam Sod (Zosyn 3.375 In Ns 100ml) 100 mls @ 200 mls/hr IVPB Q6 AZALIA PRN Reason: Protocol Stop: 07/01/17 12:01 Last Admin: 06/23/17 14:51 Dose: Not Given Sodium Chloride (Sodium Chloride 0.9%) 1,000 mls @ 100 mls/hr IV .Q10H [facility] Last Admin: 06/23/17 12:53 Dose: 100 mls/hr Morphine Sulfate (Morphine) 1 mg IVP Q4H PRN PRN Reason: Pain, moderate (4-7) Ondansetron HCl (Zofran Inj) 4 mg IVP Q4H PRN PRN Reason: Nausea/Vomiting - Labs Labs: 06/23/17 07:45 06/23/17 07:45 PT 12.7 SECONDS (9.4-12.5) H 06/21/17 15:00 INR 1.11 (0.93-1.08) H 06/21/17 15:00 APTT 29.2 Seconds (25.1-36.5) 06/21/17 15:00 - Constitutional Appears: Chronically Ill - Head Exam Head Exam: NORMAL INSPECTION - Respiratory Exam Respiratory Exam: Decreased Breath Sounds - Cardiovascular Exam Cardiovascular Exam: +S1, +S2 - GI/Abdominal Exam GI & Abdominal Exam: Soft. absent: Tenderness Assessment and Plan - Assessment and Plan (Free Text) Plan: Assessment sepsis due to acute cholecystitis HTN dyslipidemia dementia TIA CVA seizure disorder prostate disease Plan continue Zosyn day 2 and will follow up plan of surgery for the gallbladder blood cx have been negative x 1 day will monitor clinically
[2017-06-23 17:05] LABS: HEPATITIS B SURFACE AG Negative (NEGATIVE)
[2017-06-23 17:10] LABS: HEPATITIS A IGM NEGATIVE (NEGATIVE); HEPATITIS B CORE AB NEGATIVE (NEGATIVE)
[2017-06-23 19:14] LABS: HEPATITIS C ANTIBODY REACTIVE (NEGATIVE)
[2017-06-24] MEDS: Albuterol-Ipratrop 3 mg / 0.5 (3 ml) UD IH SCH ×4 (02:36→20:48)
[2017-06-24] MEDS: Piperacillin/Tazobact 3.375 gm 100 ML IVPB SCH ×4 (05:25→23:15)
[2017-06-24] MEDS: Budesonide 0.5 mg/2 ml Inhal Susp UD IH SCH ×2 (07:24→20:49)
--- NOTE | 2017-06-24 08:50 | PN ---
DATE: 06/24/2017 PULMONARY PROGRESS NOTE SUBJECTIVE: The patient appears comfortable this morning. He is not short of breath at rest. PHYSICAL EXAMINATION: VITAL SIGNS: (Last noted in the computer): Temperature is 98.9, pulse is 81, respirations are 18/20, and blood pressure is 170/100. Oxygen saturation on nasal cannula is 98%. HEENT: Normocephalic and atraumatic. NECK: No JVD. CARDIOVASCULAR: Systolic ejection murmur at the lower left sternal border. No S3 gallop. LUNGS: Crackles noted at the right base. Much less rhonchi. No wheezing. EXTREMITIES: Mild edema. No cyanosis and no clubbing. Calves are nontender to palpation. GASTROINTESTINAL: Abdomen is soft. It is mildly distended and nontender to palpation. Bowel sounds are positive. SKIN: No acute rash. NEUROLOGIC: Exam is limited at the present time. IMPRESSION: 1. Rule out acute cholecystitis. 2. Probable right lower lobe pneumonia. 3. Chronic obstructive pulmonary disease. 4. Advanced dementia. 5. Mild bronchospasm. PLAN: The patient appears much more comfortable this morning. He is not short of breath at rest. He does state to feeling better overall. On physical exam, there is certainly less bronchospasm noted. I will continue the current nebulizer treatments for now. The patient remains on antibiotic therapy - as per Infectious Diseases. Temperatures have resolved. The leukocytosis is resolving. Input by GI is also noted. Clinical status of the patient is definitely improved - compared to the initial presentation. However, the overall status/prognosis for this elderly patient does remain very guarded. I will discuss the above with Dr. Perez. Cory Acevedo MD JOSE
--- NOTE | 2017-06-24 09:27 | CP.PCM.PN ---
Subjective - Date & Time of Evaluation Date of Evaluation: 06/24/17 Time of Evaluation: 09:24 - Subjective Subjective: General Surgery Consult Progress note- Dr. Franco Patient has been seen and examined. Patient is still non-verbal but responsive with head nods today. He denies any fever or abdominal pain. Objective - Vital Signs/Intake and Output Vital Signs (last 24 hours): Temp Pulse Resp BP Pulse Ox 98.9 F 81 20 170/100 H 98 06/23/17 16:00 06/23/17 16:00 06/23/17 16:00 06/23/17 16:22 06/23/17 16:00 Intake and Output: 06/24/17 06/24/17 06:59 18:59 Intake Total 0 Output Total 2 Balance -2 - Medications Medications: Current Medications Albuterol/Ipratropium (Duoneb 3 Mg/0.5 Mg (3 Ml) Ud) 3 ml IH Q2H PRN PRN Reason: Shortness of Breath Albuterol/Ipratropium (Duoneb 3 Mg/0.5 Mg (3 Ml) Ud) 3 ml IH [id number] [facility] Last Admin: 06/24/17 07:24 Dose: 3 ml Budesonide (Pulmicort Respules) 0.5 mg IH [id number] [facility] Last Admin: 06/24/17 07:24 Dose: 0.5 mg Clonidine HCl (Catapres) 0.1 mg PO BID [facility] Last Admin: 06/23/17 16:22 Dose: 0.1 mg Doxycycline Hyclate (Doryx) 100 mg PO Q12 AZALIA PRN Reason: Protocol Stop: 07/01/17 22:01 Last Admin: 06/23/17 23:21 Dose: 100 mg Piperacillin Sod/Tazobactam Sod (Zosyn 3.375 In Ns 100ml) 100 mls @ 200 mls/hr IVPB Q6 AZALIA PRN Reason: Protocol Stop: 07/01/17 12:01 Last Admin: 06/24/17 05:25 Dose: 200 mls/hr Sodium Chloride (Sodium Chloride 0.9%) 1,000 mls @ 100 mls/hr IV .Q10H [facility] Last Admin: 06/23/17 12:53 Dose: 100 mls/hr Morphine Sulfate (Morphine) 1 mg IVP Q4H PRN PRN Reason: Pain, moderate (4-7) Ondansetron HCl (Zofran Inj) 4 mg IVP Q4H PRN PRN Reason: Nausea/Vomiting - Labs Labs: 06/23/17 07:45 06/23/17 07:45 PT 12.7 SECONDS (9.4-12.5) H 06/21/17 15:00 INR 1.11 (0.93-1.08) H 06/21/17 15:00 APTT 29.2 Seconds (25.1-36.5) 06/21/17 15:00 - Additional Findings Additional findings: - Constitutional Appears: Non-toxic, No Acute Distress, Chronically Ill - Head Exam Head Exam: ATRAUMATIC - Respiratory Exam Respiratory Exam: NORMAL BREATHING PATTERN. absent: Accessory Muscle Use, Respiratory Distress - Cardiovascular Exam Cardiovascular Exam: +S1, +S2. absent: Bradycardia, Tachycardia - GI/Abdominal Exam GI & Abdominal Exam: Distended (Improved), Soft. absent: Firm, Guarding, Rigid , Tenderness, Mass - Neurological Exam Neurological Exam: Altered - Skin Skin Exam: Intact, Warm Assessment and Plan - Assessment and Plan (Free Text) Assessment: 76M hx of Alzheimer dementia; w/ b/l lower lobe infiltrate indicative of atalectasis, reported generalized abd pain. R/O cholecystitis Abd/Pelvis CT (06/21/17): distended GB; SMA and celiac patent, however difficult to completely assess w/o IV contrast Gallbladder US (06/21/17): 1. The gallbladder is distended. Shadowing gallstones are visualized as well as significant sludge. There is gallbladder wall thickening with hypoechoic wall edema or pericholecystic fluid. These findings are suggestive of acute cholecystitis. Clinical correlation is recommended. 2. There is a small amount of hypoechoic perinephric fluid. Clinical correlation is recommended to exclude pyelonephritis. 3. Within the right hepatic lobe, there is a 0.9 x 0.8 x 0.9 cm hypoechoic lesion. T.Bili and Liver Enzymes normal. - HIDA Scan - POSITIVE - Liver CT - Shows small simple cyst. Plan: - IVF and Abx - pain control and anti-emetic PRN. - No BRBPR during rectal exam (06/22/17). - family may not wish to proceed w/ surgery - Possible CT tube - serial abd exams - further recs per Dr. Franco surgical attending Valdez Acosta - PGY1
[2017-06-24] MEDS: Sodium Chloride 0.9% 1,000 ML IV SCH (12:03)
--- NOTE | 2017-06-24 23:22 | PN ---
DATE: SUBJECTIVE: I saw Mr. Hou resting in bed. He is more alert. He smiled at me, very comfortable. He is dealing with an acute cholecystectomy and his does not want any surgery to be done. She does not think he is going to pass the surgery. She is very worried about that. He does look brighter today, little more responsive to me, nonverbal at this time. PHYSICAL EXAMINATION VITAL SIGNS: He has a 97.7 temperature, 75 pulse, 148/84 blood pressure, 18 respiratory rate, 99% O2 saturation on 2 L nasal cannula. HEENT: Head is atraumatic and normocephalic. Throat is moist. NECK: Supple. HEART: Regular rate. LUNGS: Clear to auscultation with decreased breath sounds. ABDOMEN: Soft. Positive bowel sounds. No guarding. No rebound. No CVA tenderness. EXTREMITIES: No edema. MEDICATIONS: He is on Catapres, Doryx, DuoNeb, morphine p.r.n., Pulmicort, IV fluids, Zofran, and Zosyn. LABORATORY DATA: He has a 16.6 white count which is high but it was as high as 21 and it went to 22, now it dropped to 16. He has a 13.1 hemoglobin and 30.5 hematocrit with 304 platelets. He has a 130 sodium getting better, 4.4 potassium, BUN 35, creatinine 0.9, GFR is greater than 62, sugar is 109, calcium is 9.7. Total bili is 0.6, AST is 35, ALT is 32, alk phos 64, total protein 6.6. Procalcitonin is 1.15. His hepatitis C antibody was reactive. He is being seen by Surgery, Pulmonary, Infectious Disease, and GI. He had a positive HIDA scan which showed acute cholecystitis. ASSESSMENT AND PLAN: Right lower lobe pneumonia, chronic obstructive pulmonary disease, advanced dementia, mild bronchospasm, but he is doing a little bit better and the white count is trying to come down. The family does not want surgery. watch him very closely. We will check his labs tomorrow. Thank you very much. Alberto Perez DO [facility] # [id number] MTDZenaida
[2017-06-25] MEDS: Albuterol-Ipratrop 3 mg / 0.5 (3 ml) UD IH PRN ×2 (00:01→23:50)
[2017-06-25] MEDS: Albuterol-Ipratrop 3 mg / 0.5 (3 ml) UD IH SCH ×4 (01:15→20:07)
--- NOTE | 2017-06-25 03:49 | PN ---
DATE: 06/24/2017 SUBJECTIVE: The patient is in bed, in no acute distress, nontoxic. PHYSICAL EXAMINATION: VITAL SIGNS: Temperature is 98, blood pressure is 120/70, and respiratory rate of 16. HEENT: Unremarkable. NECK: Supple. LUNGS: Have decreased breath sounds. HEART: Normal S1 and S2. ABDOMEN: Soft. LABORATORY DATA: Reveals white count down to 16,000, BUN of 35, creatinine 0.9. Procalcitonin is 1.15 and urinalysis is noted. Influenza is negative. Hepatitis B is negative. Microbiology reveals the blood cultures are negative, urine cultures are negative, and stool for C. diff toxin and antigen is negative, and the patient had a biliary scan which showed nonvisualization of gallbladder consistent with acute cholecystitis. Review of orders were reviewed, the patient to be on Zosyn. progress note is reviewed. ASSESSMENT AND PLAN: This is a 76-year-old male with sepsis due to acute cholecystitis, hypertension, dyslipidemia, dementia, transient ischemic attack, cerebrovascular disease, seizures, prostate, day #3 of Zosyn, awaiting for Surgical and Gastroenterology input. We will follow with you. Dr. Acevedo's note is reviewed. Ambrosio Bhatti MD
[2017-06-25] MEDS: Piperacillin/Tazobact 3.375 gm 100 ML IVPB SCH ×4 (06:38→23:55)
[2017-06-25] MEDS: Budesonide 0.5 mg/2 ml Inhal Susp UD IH SCH ×2 (07:16→20:07)
[2017-06-25 08:00] LABS: MEAN CELL VOLUME 88.3 fl (80.0-105.0); MEAN CORPUSCULAR HEMOGLOBIN 29.5 pg (25.0-35.0); MEAN CORPUSCULAR HGB CONC 33.4 g/dl (31.0-37.0); MEAN PLATELET VOLUME 8.7 fl (7.0-11.0); RBC 3.76 10^6/uL (3.5-6.1); RED CELL DISTRIBUTION WIDTH 13.3 % (11.5-14.5); WHITE BLOOD COUNT 5.2 10^3/ul (4.5-11.0)
[2017-06-25 08:04] LABS: HEMOGLOBIN 11.1 g/dL (14.0-18.0)
[2017-06-25 08:24] LABS: ALB/GLOB RATIO 0.9 (1.1-1.8); ALBUMIN 2.6 g/dL (3.0-4.8); ALT/SGPT 43 U/L (7-56); AST/SGOT 44 U/L (17-59); BLOOD UREA NITROGEN 17 mg/dL (7-21); CALCIUM 8.7 mg/dL (8.4-10.5); GFR AFRICAN-AMERICAN > 60; GFR NON-AFRICAN AMERICAN > 60
--- NOTE | 2017-06-25 10:46 | PN ---
DATE: 06/25/2017 PULMONARY NOTE SUBJECTIVE: The patient appears comfortable this morning. He is not short of breath at rest. PHYSICAL EXAMINATION: VITAL SIGNS: (Last noted in the computer): Temperature is 98.1, pulse 73, respirations 18, blood pressure 133/66. Oxygen saturation on room air is 91%. Oxygen saturation on nasal cannula is 99%. HEENT: Normocephalic, atraumatic. NECK: No JVD. CARDIOVASCULAR: Systolic ejection murmur at the lower left sternal border. No S3 gallop. LUNGS: Crackles at the right base. Very minimal/less rhonchi. No wheezing. EXTREMITIES: Mild edema. No cyanosis, no clubbing. Calves are nontender to palpation. GI: Abdomen is soft. It is less distended and nontender to palpation. Bowel sounds are positive. SKIN: No acute rash. NEUROLOGIC: Exam limited at the present time. IMPRESSION: 1. Rule out acute cholecystitis. 2. Right lower lobe pneumonia. 3. Chronic obstructive pulmonary disease. 4. Advanced dementia. 5. Mild bronchospasm. PLAN: The patient appears comfortable this morning. He is not short of breath at rest. On physical exam, his bronchospasm is certainly less. I will continue with the current nebulizer treatments and inhaled steroids for now. I would continue with the antibiotic coverage as per Infectious Disease. The temperatures have fully resolved. The leukocytosis has also fully resolved. Surgical input is also noted. Clinical status of the patient is significantly improved - compared to the initial presentation. However, again, the future status/prognosis for this chronically ill patient does remain very guarded. I will discuss the above with Dr. Perez. Cory Acevedo MD JOSE
[2017-06-25] MEDS: Sodium Chloride 0.9% 1,000 ML IV SCH ×2 (12:30→22:51)
--- NOTE | 2017-06-25 13:38 | PN ---
DATE: 06/25/2017 SUBJECTIVE: I saw Mr. Patiño comfortably in bed. He is more alert. He is talking a little bit, less stressed. His color of the face looks better too. He smiles at me. He put his arm out to give me a handshake. PHYSICAL EXAMINATION VITAL SIGNS: Temperature 98.1, 83 pulse, 113/66 blood pressure, 18 respiratory rate, and 91% sat on room air. HEENT: Head is atraumatic, normocephalic. Throat is moist. NECK: Supple. HEART: Regular rate. LUNGS: Decreased breath sounds, but clear. ABDOMEN: Soft. EXTREMITIES: Weak. No edema. MEDICATIONS: He is on Catapres, Doryx, DuoNeb, morphine, Pulmicort, IV fluids, Zofran and Zosyn IV. LABORATORY DATA: He has a 5.2 white count finally, it is normal; 11.1 hemoglobin; 33.2 hematocrit with 241,000 platelets. He has 135 sodium, potassium is 3.5 - I will give him a potassium rider today. His BUN is 17, creatinine 0.7 - it is better. GFR is greater than 60. Sugar is 141, calcium is 8.7, total bilirubin is 0.4, AST is 44, ALT is 43, alkaline phosphatase is 69, total protein 5.4, his procalcitonin was 1.15 - elevated. ASSESSMENT AND PLAN: So he has been through a lot - he is finally starting to come around. His lungs are also less congested than it was when he came in. He has been seen by Infectious Disease and Pulmonology. He has acute cholecystitis, hypertension, high cholesterol, dementia, transient ischemic attack, cerebrovascular accident, and history of seizures. He is also day #3, so right now, we are holding him off on surgery - his family does not want surgery. Check his labs tomorrow. Order physical therapy. Out of bed to chair. Maurice Perez DO
--- NOTE | 2017-06-25 14:49 | CP.PCM.PN ---
Subjective - Date & Time of Evaluation Date of Evaluation: 06/25/17 Time of Evaluation: 14:45 - Subjective Subjective: General Surgery Consult Progress note- Dr. Franco Patient has been seen and examined. Patient is still non-verbal but responsive with head nods today. He denies any fever or abdominal pain. Objective - Vital Signs/Intake and Output Vital Signs (last 24 hours): Temp Pulse Resp BP Pulse Ox 98.5 F 80 18 166/85 H 97 06/25/17 08:54 06/25/17 09:30 06/25/17 08:54 06/25/17 09:30 06/25/17 08:54 Intake and Output: 06/25/17 06/25/17 06:59 18:59 Intake Total 240 0 Output Total 0 Balance 240 0 - Medications Medications: Current Medications Albuterol/Ipratropium (Duoneb 3 Mg/0.5 Mg (3 Ml) Ud) 3 ml IH Q2H PRN PRN Reason: Shortness of Breath Last Admin: 06/25/17 00:01 Dose: 3 ml Albuterol/Ipratropium (Duoneb 3 Mg/0.5 Mg (3 Ml) Ud) 3 ml IH [id number] [facility] Last Admin: 06/25/17 14:06 Dose: 3 ml Budesonide (Pulmicort Respules) 0.5 mg IH [id number] [facility] Last Admin: 06/25/17 07:16 Dose: 0.5 mg Clonidine HCl (Catapres) 0.1 mg PO BID [facility] Last Admin: 06/25/17 09:30 Dose: 0.1 mg Doxycycline Hyclate (Doryx) 100 mg PO Q12 [facility]ALIA PRN Reason: Protocol Stop: 07/01/17 22:01 Last Admin: 06/25/17 09:30 Dose: 100 mg Piperacillin Sod/Tazobactam Sod (Zosyn 3.375 In Ns 100ml) 100 mls @ 200 mls/hr IVPB Q6 [facility]ALIA PRN Reason: Protocol Stop: 07/01/17 12:01 Last Admin: 06/25/17 12:30 Dose: 200 mls/hr Sodium Chloride (Sodium Chloride 0.9%) 1,000 mls @ 100 mls/hr IV .Q10H AZALIA Last Admin: 06/25/17 12:30 Dose: 100 mls/hr Morphine Sulfate (Morphine) 1 mg IVP Q4H PRN PRN Reason: Pain, moderate (4-7) Ondansetron HCl (Zofran Inj) 4 mg IVP Q4H PRN PRN Reason: Nausea/Vomiting - Labs Labs: 06/25/17 07:30 06/25/17 07:30 PT 12.7 SECONDS (9.4-12.5) H 06/21/17 15:00 INR 1.11 (0.93-1.08) H 06/21/17 15:00 APTT 29.2 Seconds (25.1-36.5) 06/21/17 15:00 - Additional Findings Additional findings: - Constitutional Appears: Non-toxic, No Acute Distress, Chronically Ill - Head Exam Head Exam: ATRAUMATIC - Respiratory Exam Respiratory Exam: NORMAL BREATHING PATTERN. absent: Accessory Muscle Use, Respiratory Distress - Cardiovascular Exam Cardiovascular Exam: +S1, +S2. absent: Bradycardia, Tachycardia - GI/Abdominal Exam GI & Abdominal Exam: Distended (Improved), Soft. absent: Firm, Guarding, Rigid , Tenderness, Mass - Neurological Exam Neurological Exam: Altered - Skin Skin Exam: Intact, Warm Assessment and Plan - Assessment and Plan (Free Text) Assessment: 76M hx of Alzheimer dementia; w/ b/l lower lobe infiltrate indicative of atalectasis, reported generalized abd pain. R/O cholecystitis Abd/Pelvis CT (06/21/17): distended GB; SMA and celiac patent, however difficult to completely assess w/o IV contrast Gallbladder US (06/21/17): 1. The gallbladder is distended. Shadowing gallstones are visualized as well as significant sludge. There is gallbladder wall thickening with hypoechoic wall edema or pericholecystic fluid. These findings are suggestive of acute cholecystitis. Clinical correlation is recommended. 2. There is a small amount of hypoechoic perinephric fluid. Clinical correlation is recommended to exclude pyelonephritis. 3. Within the right hepatic lobe, there is a 0.9 x 0.8 x 0.9 cm hypoechoic lesion. T.Bili and Liver Enzymes normal. - HIDA Scan - POSITIVE - Liver CT - Shows small simple cyst. Plan: - IVF and Abx - pain control and anti-emetic PRN. - No BRBPR during rectal exam (1/21/18). - family may not wish to proceed w/ surgery - Possible CT tube - serial abd exams - Continue to monitor - Repeat CT Abd/Pelvis on Tuesday 06/27 - further recs per Dr. Franco surgical attending Valdez Acosta - PGY1
[2017-06-26] MEDS: Albuterol-Ipratrop 3 mg / 0.5 (3 ml) UD IH SCH ×4 (01:25→20:36)
--- NOTE | 2017-06-26 02:15 | PN ---
DATE: 06/25/2017 SUBJECTIVE: The patient is in bed, in no acute distress. Nontoxic. PHYSICAL EXAMINATION: VITAL SIGNS: Temperature is 98, blood pressure is 150/80, and respiratory rate of 20. HEENT: Unremarkable. NECK: Supple. LUNGS: Have decreased breath sounds. HEART: Normal S1 and S2. ABDOMEN: Soft and nontender. LABORATORY DATA: Reveals white count of 5.2, hemoglobin of 11 and platelets of 241. Coagulation is noted. Chemistries revealed BUN of 17 and creatinine of 0.7. Procalcitonin is at 1.15. Urinalysis is noted. Serology is noted. Microbiology reveals C. diff antigen toxin is negative. Blood culture are negative. MEDICATIONS: Review of orders reveal the patient is on Zosyn and doxycycline. ASSESSMENT AND PLAN: This is 76-year-old male with sepsis due to acute cholecystitis, hypertension, dyslipidemia, dementia, transient ischemic attack, cerebrovascular accident, seizures, prostate, day #4 of Zosyn and doxycycline. We will follow with you. Ambrosio Bhatti MD
[2017-06-26] MEDS: Piperacillin/Tazobact 3.375 gm 100 ML IVPB SCH ×4 (06:52→23:14)
[2017-06-26 07:59] LABS: HEMOGLOBIN 11.2 g/dL (14.0-18.0); MEAN CELL VOLUME 90.7 fl (80.0-105.0); MEAN CORPUSCULAR HEMOGLOBIN 29.9 pg (25.0-35.0); MEAN CORPUSCULAR HGB CONC 32.9 g/dl (31.0-37.0); MEAN PLATELET VOLUME 8.9 fl (7.0-11.0); RBC 3.75 10^6/uL (3.5-6.1); RED CELL DISTRIBUTION WIDTH 13.1 % (11.5-14.5); WHITE BLOOD COUNT 6.1 10^3/ul (4.5-11.0)
[2017-06-26 08:16] LABS: ALBUMIN 2.6 g/dL (3.0-4.8); ALT/SGPT 43 U/L (7-56); AST/SGOT 37 U/L (17-59); BLOOD UREA NITROGEN 10 mg/dL (7-21); CALCIUM 8.4 mg/dL (8.4-10.5); GFR AFRICAN-AMERICAN > 60; GFR NON-AFRICAN AMERICAN > 60
[2017-06-26] MEDS: Budesonide 0.5 mg/2 ml Inhal Susp UD IH SCH ×2 (08:36→20:37)
--- NOTE | 2017-06-26 09:58 | PN ---
DATE: 06/26/2017 SUBJECTIVE: The patient appears comfortable this morning. He is not short of breath at rest. PHYSICAL EXAMINATION: VITALS: Temperature is 98.0, pulse 72, respirations 18, blood pressure 158/86. Oxygen saturation on room air ranges between 92-97%. HEENT: Normocephalic, atraumatic. No JVD. CARDIOVASCULAR: Systolic ejection murmur at the lower left sternal border. No S3 gallop. LUNGS: Crackles at the right base. Very minimal/less rhonchi. No wheezing. EXTREMITIES: Mild edema. No cyanosis, no clubbing. Calves are nontender to palpation. GI: Abdomen is soft. It is now nondistended and nontender to palpation. Bowel sounds are positive. SKIN: No acute rash. NEUROLOGIC: Limited at the present time. IMPRESSION: 1. Acute cholecystitis. 2. Right lower lobe pneumonia. 3. Chronic obstructive pulmonary disease. 4. Advanced dementia. 5. Mild bronchospasm. PLAN: The patient appears comfortable this morning. He is not short of breath at rest. On physical exam, his bronchospasm is minimal. In addition, there is no significant alveolar-arterial gradient. I will continue the current nebulizer treatments and inhaled steroids for now. I will also continue with the aspiration precautions. I would continue with the antibiotic coverage as per infectious disease. Temperatures have resolved. The leukocytosis has also resolved. I would continue with the surgical evaluation. Input by Dr. Franco is noted. Clinical status of the patient is certainly improved - compared to the initial presentation. However, again, the overall status/prognosis for this chronically ill patient does remain very guarded. I did discuss the above with Dr. Perez. Cory Acevedo MD JOSE
--- NOTE | 2017-06-26 13:00 | PN ---
DATE: 06/26/2017. SUBJECTIVE: I saw Yoshi resting in bed. He still has a little bit of a cough, but he is more alert. He put out his hand to shake my hand. MEDICATIONS: He is on Catapres, I increased it to 3 times a day because his blood pressure was high, Doryx, DuoNeb, morphine, Pulmicort, Zofran and Zosyn IV. PHYSICAL EXAMINATION: VITAL SIGNS: Temperature 97.5, 69 pulse, 147/92 blood pressure, increased his clonidine, respiratory rate 20, 97% O2 sat on 2 L cannula. GENERAL: He is alert, really nonverbal, spoke one word to me. HEENT: His throat is moist. HEART: Regular rate. LUNGS: Decreased breath sounds. Mild congestion but improving. ABDOMEN: Soft. EXTREMITIES: No edema. He has got hepatitis C, it is reactive, I am going to call GI to get their opinion. LABORATORY DATA: He has a white count of 6.1, better, 11.2 hemoglobin, 34 hematocrit with 247 platelets. He has 138 sodium, potassium is 3.4, I am going to give him some potassium, BUN 10, creatinine 0.6, GFR is greater than 60, sugar is 119, total bilirubin is 0.4, AST is 37, ALT is 43, alk phos is 52. PLAN: If he does well today, I am hoping to possibly get him home tomorrow. His takes care of him at home. He will get physical therapy. We will get him out of bed to chair. I am going to give him a couple of K-riders today and hopefully he continues to improve He has multiple issues, Mr. Hou got sepsis, gall bladder, acute cholecystitis, he had hepatitis C, right lower lobe pneumonia and chronic obstructive pulmonary disease. Maurice Perez DO
[2017-06-26] MEDS: Sodium Chloride 0.9% 1,000 ML IV SCH (13:02)
--- NOTE | 2017-06-26 13:24 | CP.PCM.PN ---
<Navjot Carvajal - Last Filed: 06/26/17 13:34> Subjective - Date & Time of Evaluation Date of Evaluation: 06/26/17 Time of Evaluation: 13:00 - Subjective Subjective: GI Consult note: Pt seen and examined at bedside. No acute events overnight. Pt states that he is doing well. No complaints at this time. 12 point ROS performed and negative, but limited due to patients dementia Objective - Vital Signs/Intake and Output Vital Signs (last 24 hours): Temp Pulse Resp BP Pulse Ox 97.5 F L 69 20 147/92 H 97 06/26/17 08:00 06/26/17 08:00 06/26/17 08:00 06/26/17 09:53 06/26/17 08:00 Intake and Output: 06/26/17 06/26/17 06:59 18:59 Intake Total 420 Balance 420 - Medications Medications: Current Medications Albuterol/Ipratropium (Duoneb 3 Mg/0.5 Mg (3 Ml) Ud) 3 ml IH Q2H PRN PRN Reason: Shortness of Breath Last Admin: 06/25/17 23:50 Dose: 3 ml Albuterol/Ipratropium (Duoneb 3 Mg/0.5 Mg (3 Ml) Ud) 3 ml IH [id number] [facility]ALIA Last Admin: 06/26/17 08:36 Dose: 3 ml Budesonide (Pulmicort Respules) 0.5 mg IH [id number] [facility]ALIA Last Admin: 06/26/17 08:36 Dose: 0.5 mg Clonidine HCl (Catapres) 0.1 mg PO TID [facility]ALIA Doxycycline Hyclate (Doryx) 100 mg PO Q12 [facility]ALIA PRN Reason: Protocol Stop: 07/01/17 22:01 Last Admin: 06/26/17 09:52 Dose: 100 mg Piperacillin Sod/Tazobactam Sod (Zosyn 3.375 In Ns 100ml) 100 mls @ 200 mls/hr IVPB Q6 AZALIA PRN Reason: Protocol Stop: 07/01/17 12:01 Last Admin: 06/26/17 13:00 Dose: 200 mls/hr Sodium Chloride (Sodium Chloride 0.9%) 1,000 mls @ 100 mls/hr IV .Q10H AZALIA Last Admin: 06/26/17 13:02 Dose: 100 mls/hr Potassium Chloride (Potassium Chloride 10 Meq/100 Ml) 10 meq in 100 mls @ 50 mls/hr IVPB Q2H [facility]ALIA Stop: 06/26/17 15:29 Last Admin: 06/26/17 13:01 Dose: 50 mls/hr Morphine Sulfate (Morphine) 1 mg IVP Q4H PRN PRN Reason: Pain, moderate (4-7) Ondansetron HCl (Zofran Inj) 4 mg IVP Q4H PRN PRN Reason: Nausea/Vomiting - Labs Labs: 06/26/17 07:01 06/26/17 07:01 PT 12.7 SECONDS (9.4-12.5) H 06/21/17 15:00 INR 1.11 (0.93-1.08) H 06/21/17 15:00 APTT 29.2 Seconds (25.1-36.5) 06/21/17 15:00 - Constitutional Appears: No Acute Distress - Head Exam Head Exam: ATRAUMATIC, NORMOCEPHALIC - Eye Exam Eye Exam: EOMI Pupil Exam: NORMAL ACCOMODATION - ENT Exam ENT Exam: Mucous Membranes Moist - Respiratory Exam Respiratory Exam: Clear to Ausculation Bilateral. absent: Rales, Wheezes - Cardiovascular Exam Cardiovascular Exam: REGULAR RHYTHM, RRR, +S1, +S2 - GI/Abdominal Exam GI & Abdominal Exam: Soft, Normal Bowel Sounds. absent: Distended, Tenderness, Organomegaly - Extremities Exam Extremities Exam: absent: Calf Tenderness, Pedal Edema - Neurological Exam Neurological Exam: Alert, Awake, Oriented x3 - Skin Skin Exam: Dry, Intact, Warm Assessment and Plan - Assessment and Plan (Free Text) Assessment: 76M with PMHx of CVA, Alzheimers dementia, COPD, HTN, and constipation presents to the ED accompanied by his for chest congestion, low grade fever , abdominal distention, and dark urine. Patient found to have leukocytosis, electrolyte abnormalities, found to have acute cholecystitis and and small simple liver cyst Small simple liver cyst Acute cholecystitis Alzheimer's dementia COPD HTN - Diet as tolerated - Triple phase liver CT - Small simple cyst in RLL of liver, +acute cholecystitis - Hep C positive - given patients advance age and Alzheimer's dementia no further plan for treatment. No signs of portal hypertension, HCC or cirrhosis therefore no contraindication for cholecystectomy from GI standpoint - Follow up surgery recommendations - Continue with antibiotic therapy as per ID - AFP negative - Blood and urine cultures negative - No further planned GI intervention regarding hepatic cyst Case and plan was reviewed and discussed in detail with Dr Amador. <Ulisses Amador - Last Filed: 06/26/17 13:42> Objective - Vital Signs/Intake and Output Vital Signs (last 24 hours): Temp Pulse Resp BP Pulse Ox 97.5 F L 69 20 147/92 H 97 06/26/17 08:00 06/26/17 08:00 06/26/17 08:00 06/26/17 09:53 06/26/17 08:00 Intake and Output: 06/26/17 06/26/17 06:59 18:59 Intake Total 420 Balance 420 - Medications Medications: Current Medications Albuterol/Ipratropium (Duoneb 3 Mg/0.5 Mg (3 Ml) Ud) 3 ml IH Q2H PRN PRN Reason: Shortness of Breath Last Admin: 06/25/17 23:50 Dose: 3 ml Albuterol/Ipratropium (Duoneb 3 Mg/0.5 Mg (3 Ml) Ud) 3 ml IH [id number] AZALIA Last Admin: 06/26/17 08:36 Dose: 3 ml Budesonide (Pulmicort Respules) 0.5 mg IH [id number] AZALIA Last Admin: 06/26/17 08:36 Dose: 0.5 mg Clonidine HCl (Catapres) 0.1 mg PO TID AZALIA Doxycycline Hyclate (Doryx) 100 mg PO Q12 AZALIA PRN Reason: Protocol Stop: 07/01/17 22:01 Last Admin: 06/26/17 09:52 Dose: 100 mg Piperacillin Sod/Tazobactam Sod (Zosyn 3.375 In Ns 100ml) 100 mls @ 200 mls/hr IVPB Q6 AZALIA PRN Reason: Protocol Stop: 07/01/17 12:01 Last Admin: 06/26/17 13:00 Dose: 200 mls/hr Sodium Chloride (Sodium Chloride 0.9%) 1,000 mls @ 100 mls/hr IV .Q10H [facility]ALIA Last Admin: 06/26/17 13:02 Dose: 100 mls/hr Potassium Chloride (Potassium Chloride 10 Meq/100 Ml) 10 meq in 100 mls @ 50 mls/hr IVPB Q2H AZALIA Stop: 06/26/17 15:29 Last Admin: 06/26/17 13:01 Dose: 50 mls/hr Morphine Sulfate (Morphine) 1 mg IVP Q4H PRN PRN Reason: Pain, moderate (4-7) Ondansetron HCl (Zofran Inj) 4 mg IVP Q4H PRN PRN Reason: Nausea/Vomiting - Labs Labs: 06/26/17 07:01 06/26/17 07:01 PT 12.7 SECONDS (9.4-12.5) H 06/21/17 15:00 INR 1.11 (0.93-1.08) H 06/21/17 15:00 APTT 29.2 Seconds (25.1-36.5) 06/21/17 15:00 Attending/Attestation - Attestation I have personally seen and examined this patient.: Yes I have fully participated in the care of the patient.: Yes I have reviewed all pertinent clinical information, including history, physical exam and plan: Yes Notes (Text): 06/26/17 13:40 76 year old male with h/o CVA, Dementia, COPD, HTN admitted with cholecystitis. 1. Acute cholecystitis 2. Hepatic cyst 3. Hepatitis C Plan: -on antibiotics for cholecystitis -surgery following, drain vs surgery -liver lesion is a bengin cyst, no further eval/rx needed -hepatitis C serology positive, but no clinical signs of cirrhosis or portal hypertension, normal platelets -considering age/comorbid illness, patient unlikely to be a candidate for hepatitis C treatment -no additional eval or rx at this time for hep c
--- NOTE | 2017-06-26 23:51 | PN ---
DATE: 06/26/2017 SUBJECTIVE: The patient in bed, in no acute distress. Nontoxic. PHYSICAL EXAMINATION: VITAL SIGNS: Temperature is 97, blood pressure is 130/90, and respiratory rate of 16. HEENT: Unremarkable. NECK: Supple. LUNGS: Decreased breath sounds. HEART: Normal S1 and S2. ABDOMEN: Soft and nontender. LABORATORY DATA: Reveals a white count of 6.1, hemoglobin of 11, and platelets of 247. Chemistries reveal a BUN of 10, creatinine of 0.6, and procalcitonin is 1.1. Urinalysis is noted. Serology is noted. Microbiology reveals C. diff toxin and antigen is negative. Blood cultures are negative. ASSESSMENT AND PLAN: This is a 76-year-old male with sepsis due to acute cholecystitis, hypertension, dyslipidemia, dementia, transient ischemic attack, cerebrovascular accident, prostate disease and seizures, day #5 of Zosyn and doxycycline and we have renewed his Zosyn. note is reviewed, awaiting for surgical followup versus antibiotic and treatment alone. We will follow closely with you. Ambrosio Bhatti MD
[2017-06-27] MEDS: Albuterol-Ipratrop 3 mg / 0.5 (3 ml) UD IH SCH ×4 (01:32→20:51)
[2017-06-27] MEDS ORDERED: Barium Sulfate Susp 2.1% w/v, 2.0% w/w 450 mL Bottle PO ONE (07:08)
[2017-06-27 08:06] LABS: MEAN CELL VOLUME 89.7 fl (80.0-105.0); MEAN CORPUSCULAR HEMOGLOBIN 29.9 pg (25.0-35.0); MEAN CORPUSCULAR HGB CONC 33.3 g/dl (31.0-37.0); RBC 4.58 10^6/uL (3.5-6.1); WHITE BLOOD COUNT 5.7 10^3/ul (4.5-11.0)
[2017-06-27 08:09] LABS: HEMOGLOBIN 13.7 g/dL (14.0-18.0)
[2017-06-27 08:37] LABS: ALB/GLOB RATIO 1.1 (1.1-1.8); ALBUMIN 3.3 g/dL (3.0-4.8); ALT/SGPT 45 U/L (7-56); AST/SGOT 49 U/L (17-59); BLOOD UREA NITROGEN 7 mg/dL (7-21); CALCIUM 9.3 mg/dL (8.4-10.5); GFR AFRICAN-AMERICAN > 60; GFR NON-AFRICAN AMERICAN > 60
[2017-06-27] MEDS: Budesonide 0.5 mg/2 ml Inhal Susp UD IH SCH ×2 (08:50→20:51)
--- NOTE | 2017-06-27 10:05 | PN ---
DATE: 06/27/2017 PULMONARY NOTE SUBJECTIVE: The patient appears comfortable this morning. He is not short of breath at rest. OBJECTIVE: VITALS: Temperature is 97.4, pulse is 75, respirations 18, blood pressure 184/102. Oxygen saturation on nasal cannula is 96%. HEENT: Normocephalic, atraumatic. No JVD. CARDIOVASCULAR: Systolic ejection murmur at the lower left sternal border. No S3, gallop. LUNGS: Crackles at the right base. Minimal bilateral rhonchi. No wheezing. EXTREMITIES: Mild edema. No cyanosis, no clubbing. Calves are nontender to palpation. GI: Abdomen is soft, nontender, and nondistended. Bowel sounds are positive. SKIN: No acute rash. NEUROLOGIC: Limited at the present time. IMPRESSION: 1. Acute cholecystitis. 2. Right lower lobe pneumonia. 3. Chronic obstructive pulmonary disease. 4. Advanced dementia. 5. Mild bronchospasm. PLAN: The patient appears comfortable this morning. He is not short of breath at rest. On physical exam, mild bronchospasm remains. However, there is no significant alveolar-arterial gradient. I will continue with the current nebulizer treatments and inhaled steroids for now. I will also continue with the aspiration precautions. I would continue with the antibiotic coverage as per Infectious Disease. Input by Dr. Bhatti is noted. The leukocytosis has resolved. Clinical status of the patient is certainly improved - compared to the initial presentation. However, again, the future status/prognosis for this chronically ill, elderly patient remains very guarded at best. I will discuss the above with Dr. Perez. Cory Acevedo MD JOSE
[2017-06-27] MEDS: Piperacillin/Tazobact 3.375 gm 100 ML IVPB SCH ×3 (11:16→23:00)
[2017-06-27] MEDS: Nystatin 100,000 Units/ml Oral Susp 5 ml UD PO SCH ×4 (11:20→21:45)
--- NOTE | 2017-06-27 11:50 | CT ---
PROCEDURE: CT Abdomen and Pelvis with contrast HISTORY: Fever, pneumonia, abdominal pain. COMPARISON: 06/21/2017. CT abdomen and pelvis 06/22/2017 abdominal ultrasound 06/23/2017 radionuclide hepatobiliary scan. Summary of findings on the comparison examination: Nonvisualization of gallbladder consistent with acute cholecystitis. 06/23/2017 CT liver. TECHNIQUE: Contrast dose: Oral contrast only. Radiation dose: Total exam DLP = 906.26 mGy-cm. This CT exam was performed using one or more of the following dose reduction techniques: Automated exposure control, adjustment of the mA and/or kV according to patient size, and/or use of iterative reconstruction technique. FINDINGS: LOWER THORAX: Trace bilateral pleural effusions. Increasing consolidative changes right lower lobe compatible with pneumonia. Calcified pleural plaques consistent with prior asbestos exposure. LIVER: Unremarkable. No gross lesion or ductal dilatation. GALLBLADDER AND BILE DUCTS: Distended gallbladder, gallstones again identified. Pericholecystic inflammatory changes identified previously have improved. PANCREAS: Unremarkable. No gross lesion or ductal dilatation. SPLEEN: Unremarkable. ADRENALS: Unremarkable. No mass. KIDNEYS AND URETERS: Unremarkable. No hydronephrosis. No solid mass. VASCULATURE: Unremarkable. No aortic aneurysm. BOWEL: Constipation and a component of fecal impaction. Distention of the colon identified previously has improved APPENDIX: Normal appendix. PERITONEUM: Unremarkable. No free fluid. No free air. LYMPH NODES: Unremarkable. No enlarged lymph nodes. BLADDER: Unremarkable. REPRODUCTIVE: Unremarkable. BONES: No acute fracture. OTHER FINDINGS: None. IMPRESSION: Distended gallbladder with gallstones. Pericholecystic inflammatory changes identified previously have resolved. Constipation, fecal impaction without mechanical obstruction. The distention of the colon identified previously has improved. Increasing right lower lobe infiltrate compatible with pneumonia.
--- NOTE | 2017-06-27 13:26 | PN ---
DATE: 06/27/2017 SUBJECTIVE: I saw him resting comfortably in bed this morning, felt fairly well. He was having a cough at times. I ordered a chest x-ray. He does seem a little bit improved. He does have thrush in the mouth now and I am going to put him on some nystatin. He is on Catapres, Doryx, DuoNebs, morphine for pain. He has been given a potassium rider for a low potassium. He has IV fluids, Zosyn, Zofran. PHYSICAL EXAMINATION: VITAL SIGNS: His vital signs at this time are 97.4 temp, 75 pulse, 184/102 blood pressure. His blood pressure is a little bit high Respiratory rate is 18, 96% O2 sat on 2 L and he had a 101.2 temperature this morning at 1:00 a.m. HEENT: His head is atraumatic, normocephalic. Throat has got a thrush in it. I will give him some nystatin. HEART: Regular rate. LUNGS: Decreased breath sounds, but when he coughs, he has a lot of congestion. ABDOMEN: Soft. EXTREMITIES: No edema. LABORATORY DATA: He has a 133 sodium, 3.4 potassium. I will give him some potassium today. 6.1 white count, 11.2 hemoglobin, 34 hematocrit, 247 platelets. ASSESSMENT AND PLAN: He has been seen by Infectious Disease, Gastroenterology, Pulmonary. He has a few things going on, pneumonia, sepsis, dementia, thrush, hypertension. I am trying to get him home where his takes care of him. When I get the okay from Infectious Disease, I will do that. Change him to tablets. Continue with aggressive treatment and care. Check a chest x-ray this morning. Watch his temperature. Maurice Perez DO MTDD
--- NOTE | 2017-06-27 14:03 | RAD ---
HISTORY: COMPARISON: 06/21/2017 TECHNIQUE: Chest PA and lateral FINDINGS: LINES AND TUBES: None. LUNG AND PLEURA: The lungs are well inflated. There is consolidation in the right lower lobe. There is a small right pleural effusion. The left lung is clear. No left pleural effusion. HEART AND MEDIASTINUM: The heart is not enlarged. The hilar and mediastinal contours are within normal limits. SKELETAL STRUCTURES: The bony structures are within normal limits for the patient's age. VISUALIZED UPPER ABDOMEN: Normal. OTHER FINDINGS: None. IMPRESSION: Findings are concerning for right lower lobe pneumonia and small right pleural effusion. Follow-up after medical management is recommended to ensure complete resolution.
--- NOTE | 2017-06-27 18:36 | CP.PCM.PN ---
Subjective - Date & Time of Evaluation Date of Evaluation: 06/27/17 Time of Evaluation: 13:05 - Subjective Subjective: Comfortable, no fevers. Objective - Vital Signs/Intake and Output Vital Signs (last 24 hours): Temp Pulse Resp BP Pulse Ox 98.5 F 75 18 161/95 H 97 06/27/17 17:42 06/27/17 17:42 06/27/17 17:42 06/27/17 17:42 06/27/17 17:42 Intake and Output: 06/27/17 06/27/17 06:59 18:59 Intake Total 180 Balance 180 - Medications Medications: Current Medications Albuterol/Ipratropium (Duoneb 3 Mg/0.5 Mg (3 Ml) Ud) 3 ml IH Q2H PRN PRN Reason: Shortness of Breath Last Admin: 06/25/17 23:50 Dose: 3 ml Albuterol/Ipratropium (Duoneb 3 Mg/0.5 Mg (3 Ml) Ud) 3 ml IH [id number] [facility] Last Admin: 06/27/17 14:13 Dose: 3 ml Amlodipine Besylate (Norvasc) 2.5 mg PO DAILY [facility] Last Admin: 06/27/17 11:14 Dose: 2.5 mg Budesonide (Pulmicort Respules) 0.5 mg IH [id number] [facility] Last Admin: 06/27/17 08:50 Dose: 0.5 mg Clonidine HCl (Catapres) 0.1 mg PO TID [facility] Last Admin: 06/27/17 17:21 Dose: 0.1 mg Doxycycline Hyclate (Doryx) 100 mg PO Q12 AZALIA PRN Reason: Protocol Stop: 07/01/17 22:01 Last Admin: 06/27/17 11:14 Dose: 100 mg Piperacillin Sod/Tazobactam Sod (Zosyn 3.375 In Ns 100ml) 100 mls @ 200 mls/hr IVPB Q6 AZALIA PRN Reason: Protocol Stop: 07/01/17 12:01 Last Admin: 06/27/17 17:21 Dose: 200 mls/hr Sodium Chloride (Sodium Chloride 0.9%) 1,000 mls @ 100 mls/hr IV .Q10H [facility] Last Admin: 06/26/17 13:02 Dose: 100 mls/hr Nystatin (Nystatin Oral Susp) 5 ml PO QID AZALIA Last Admin: 06/27/17 17:21 Dose: 5 ml Ondansetron HCl (Zofran Inj) 4 mg IVP Q4H PRN PRN Reason: Nausea/Vomiting - Labs Labs: 06/27/17 07:30 06/27/17 07:30 PT 12.7 SECONDS (9.4-12.5) H 06/21/17 15:00 INR 1.11 (0.93-1.08) H 06/21/17 15:00 APTT 29.2 Seconds (25.1-36.5) 06/21/17 15:00 - Constitutional Appears: Non-toxic - Head Exam Head Exam: NORMAL INSPECTION - ENT Exam ENT Exam: Mucous Membranes Moist - Neck Exam Neck Exam: absent: Meningismus - Respiratory Exam Respiratory Exam: Decreased Breath Sounds - Cardiovascular Exam Cardiovascular Exam: +S1, +S2 - GI/Abdominal Exam GI & Abdominal Exam: Soft. absent: Tenderness Assessment and Plan - Assessment and Plan (Free Text) Plan: Assessment sepsis due to acute cholecystitis and right lower lobe HCAP HTN dyslipidemia dementia TIA CVA seizure disorder prostate disease Plan continue Zosyn and Doxycycline day 6 and will follow up plan of surgery for the gallbladder will continue to monitor clinically
[2017-06-28] MEDS: Albuterol-Ipratrop 3 mg / 0.5 (3 ml) UD IH SCH ×4 (01:16→21:10)
[2017-06-28] MEDS: Budesonide 0.5 mg/2 ml Inhal Susp UD IH SCH ×2 (07:47→21:10)
[2017-06-28 07:55] LABS: HEMOGLOBIN 13.3 g/dL (14.0-18.0); MEAN CELL VOLUME 88.8 fl (80.0-105.0); MEAN CORPUSCULAR HEMOGLOBIN 29.7 pg (25.0-35.0); MEAN CORPUSCULAR HGB CONC 33.4 g/dl (31.0-37.0); MEAN PLATELET VOLUME 9.1 fl (7.0-11.0); RBC 4.48 10^6/uL (3.5-6.1); WHITE BLOOD COUNT 6.2 10^3/ul (4.5-11.0)
[2017-06-28 08:18] LABS: ALB/GLOB RATIO 1.1 (1.1-1.8); ALBUMIN 3.2 g/dL (3.0-4.8); ALT/SGPT 54 U/L (7-56); AST/SGOT 51 U/L (17-59); BLOOD UREA NITROGEN 8 mg/dL (7-21); CALCIUM 8.9 mg/dL (8.4-10.5); GFR AFRICAN-AMERICAN > 60; GFR NON-AFRICAN AMERICAN > 60
--- NOTE | 2017-06-28 08:45 | PN ---
DATE: 06/28/2017 PULMONARY PROGRESS NOTE SUBJECTIVE: The patient appears comfortable this morning. He is not short of breath at rest. PHYSICAL EXAMINATION: VITAL SIGNS: Temperature is 98.5, pulse is 77, respirations are 18, and blood pressure is 170/100. Oxygen saturation on nasal cannula is 97%. HEENT: Normocephalic and atraumatic. NECK: No JVD. CARDIOVASCULAR: Systolic ejection murmur at the lower left sternal border. No S3 gallop. LUNGS: Crackles at the right base. Less rhonchi. No wheezing. EXTREMITIES: Mild edema. No cyanosis and no clubbing. Calves are nontender to palpation. GASTROINTESTINAL: Abdomen is soft, nontender and nondistended. Bowel sounds are positive. SKIN: No acute rash. NEUROLOGIC: Exam is limited at the present time. PERTINENT LABORATORY DATA: CT scan of the abdomen and pelvis was done and reviewed. There is a slight increase in the previously noted right lower lobe infiltrate. There are small bilateral pleural effusions. There is also a distended gallbladder with gallstones. IMPRESSION 1. Acute cholecystitis. 2. Right lower lobe pneumonia. 3. Chronic obstructive pulmonary disease. 4. Advanced dementia. 5. Mild bronchospasm. PLAN: The patient appears more comfortable this morning. He is not short of breath at rest. On physical exam, his bronchospasm is less this morning. In addition, oxygen saturation on nasal cannula is now 97%. I will continue the current nebulizer treatments and inhaled steroids for now. I will also continue with the aspiration precautions. I would continue with the antibiotic coverage as per Infectious Diseases. Input by Dr. Amin is noted. Temperatures have now resolved. The leukocytosis has also resolved. Inputs by GI and Surgery are also noted. Clinical status of the patient is certainly improved - compared to the past few days. However, again, the overall status/prognosis for this chronically ill elderly patient, is poor. All are aware. I will discuss the above with Dr. Perez. Cory Acevedo MD [facility]
[2017-06-28] MEDS: Nystatin 100,000 Units/ml Oral Susp 5 ml UD PO SCH ×4 (10:08→21:52)
[2017-06-28] MEDS: Piperacillin/Tazobact 3.375 gm 100 ML IVPB SCH ×3 (12:21→23:10)
[2017-06-28] MEDS: Sodium Chloride 0.9% 1,000 ML IV SCH (17:20)
--- NOTE | 2017-06-28 18:08 | PN ---
DATE: SUBJECTIVE: I saw him comfortably resting in bed. He is alert, sitting up. His is who takes care of him at home. He is eating some, occasional cough. MEDICATIONS: He is on IV antibiotics, on Catapres, Doryx, DuoNebs, Norvasc, nystatin, potassium replacement, IV fluids, Zofran, and Zosyn. PHYSICAL EXAMINATION VITAL SIGNS: 98.3 temperature, 77 pulse, 148/67 blood pressure, 20 respiratory rate, and 98% on O2 saturation on 3 liters of nasal cannula. HEENT: Head is atraumatic, normocephalic. His eyes are open. He is looking at me, nonverbal at this time. HEART: Regular rate with decreased breath sounds, occasional congestion, better than the other day, he is moving more air today. ABDOMEN: Soft. EXTREMITIES: No edema. Physical therapy set at home services. LABORATORY DATA: He has a 6.2 white count, 15.3 hemoglobin, 39.8 hematocrit, with a 282 platelets. A 132 sodium, potassium 3.6, BUN 8, creatinine 0.7, GFR greater than 60, sugar is 84, calcium 8.9, total bilirubin 0.78, CA is 52, AST 51, ALT 54, alk phos 55, and total protein 6.2. Urine is clear, negative for influenza and hepatitis. 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 He had some tests done. He had a chest x-ray and an abdominal CAT scan. He has a right lower lobe pneumonia, small right pleural effusion, increasing right lower lobe infiltrate on CAT scan. He has some impaction without fecal obstructions. I will give him some suppository. He has gallstones and distended gallbladder. He has pneumonia, sepsis, cholecystitis. Family does not want any surgery, dementia, hypertension, thrush. I will give him some Incivek for constipation. We are going to continue with the IV antibiotics and pulmonary toilet as per Infectious Disease. When I get the okay, I will discharge home hopefully the next day or two. Maurice Perez DO [facility] # [phone]
[2017-06-29] MEDS: Albuterol-Ipratrop 3 mg / 0.5 (3 ml) UD IH SCH ×4 (01:37→19:18)
--- NOTE | 2017-06-29 03:02 | PN ---
DATE: 06/28/2017 SUBJECTIVE: The patient is seen early this morning in room 578, bed 2. No fevers and no chills. PHYSICAL EXAMINATION: VITAL SIGNS: Temperature is 98, blood pressure is 160/90, respiratory rate 16. HEENT: Unremarkable. NECK: Supple. LUNGS: Have decreased breath sounds. HEART: Normal S1, S2. ABDOMEN: Soft. LABORATORY EXAMINATION: Reveals a white count of 6.2, hemoglobin of 13. BUN of 8, creatinine of 0.7 and the urinalysis is noted and microbiology is noted. ASSESSMENT AND PLAN: This is a 76-year-old male who was seen early this morning. The patient admitted with sepsis due to acute cholecystitis; right lower lobe healthcare-associated pneumonia; hypertension; dyslipidemia; dementia, on Zosyn and doxycycline, day #7 and the patient is tolerating the antibiotics well. We will follow closely with you. Family does not want any surgery. Ambrosio Bhatti MD
[2017-06-29] MEDS: Piperacillin/Tazobact 3.375 gm 100 ML IVPB SCH (05:33)
[2017-06-29 06:20] VITALS: RESP 18
[2017-06-29] MEDS: Budesonide 0.5 mg/2 ml Inhal Susp UD IH SCH ×2 (07:04→19:18)
[2017-06-29 08:11] LABS: HEMOGLOBIN 12.9 g/dL (14.0-18.0); MEAN CELL VOLUME 88.5 fl (80.0-105.0); MEAN CORPUSCULAR HEMOGLOBIN 29.6 pg (25.0-35.0); MEAN CORPUSCULAR HGB CONC 33.4 g/dl (31.0-37.0); MEAN PLATELET VOLUME 9.1 fl (7.0-11.0); RBC 4.36 10^6/uL (3.5-6.1); RED CELL DISTRIBUTION WIDTH 13.1 % (11.5-14.5); WHITE BLOOD COUNT 6.4 10^3/ul (4.5-11.0)
--- NOTE | 2017-06-29 08:26 | PN ---
DATE: 06/29/2017 PULMONARY NOTE SUBJECTIVE: The patient appears comfortable this morning. He is not short of breath at rest. PHYSICAL EXAMINATION: VITAL SIGNS: (Last noted in the computer): Temperature is 98.5, pulse 77, respirations 18, blood pressure 152/86. Oxygen saturation on nasal cannula is 97-100%. HEENT: Normocephalic, atraumatic. NECK: No JVD. CARDIOVASCULAR: Systolic ejection murmur at the lower left sternal border. No S3 gallop. LUNGS: Crackles noted at the right base. Less rhonchi. No wheezing. EXTREMITIES: Mild edema. No cyanosis, no clubbing. Calves are nontender to palpation. GI: Abdomen is soft, nontender and nondistended. Bowel sounds are positive. SKIN: No acute rash. NEUROLOGIC: Exam limited at the present time. IMPRESSION: 1. Acute cholecystitis. 2. Right lower lobe pneumonia. 3. Chronic obstructive pulmonary disease. 4. Advanced dementia. 5. Mild bronchospasm. PLAN: The patient appears comfortable this morning. He is not short of breath at rest. On physical exam, his bronchospasm continues to resolve. In addition, the oxygen saturation on nasal cannula is now 97-100%. I will continue with the current nebulizer treatments and inhaled steroids for now. I would continue with the antibiotic coverage as per Infectious Disease. The temperatures have now fully resolved. The leukocytosis has also resolved. Repeat a.m. labs are pending. Clinical status of the patient is certainly improved - compared to a few days ago. However, again, unfortunately, the overall status/prognosis for this chronically ill elderly patient remains very guarded at best. I will discuss the above with Dr. Perez. Cory Acevedo MD [facility]
[2017-06-29 08:58] LABS: ALB/GLOB RATIO 1.1 (1.1-1.8); ALT/SGPT 50 U/L (7-56); AST/SGOT 48 U/L (17-59); BLOOD UREA NITROGEN 6 mg/dL (7-21); CALCIUM 8.8 mg/dL (8.4-10.5); GFR AFRICAN-AMERICAN > 60; GFR NON-AFRICAN AMERICAN > 60
[2017-06-29] MEDS: Nystatin 100,000 Units/ml Oral Susp 5 ml UD PO SCH ×4 (10:16→21:08)
--- NOTE | 2017-06-29 12:48 | PN ---
DATE: SUBJECTIVE: I saw him early this morning. He is resting comfortably in bed. I saw him with his . He is alert, he is smiling, tried to say a few words, it is good as he gets, put his hand out to shake my hand. PHYSICAL EXAMINATION: VITAL SIGNS: He has a 98.3 temperature, 67 pulse, 141/86 blood pressure, 18, respiratory rate, 96-97% O2 sat on room air. HEENT: Head is atraumatic, normocephalic. Throat is moist. NECK: Supple. HEART: Regular rate. LUNGS: Decreased breath sounds but clear. ABDOMEN: Soft, nontender. Positive bowel sounds. No guarding, no rebound or CVA tenderness. EXTREMITIES: No edema. MEDICATIONS: He is currently on Catapres, DuoNeb, Norvasc, nystatin, Pulmicort, IV fluids, Zofran and Zosyn. LABORATORY DATA: He has a white count of 6.4, hemoglobin 12.9, hematocrit 38.6, and platelets are 269. He has 133 sodium, potassium is 3.2. I gave him 2K riders. BUN is 6, creatinine 0.6, GFR is greater than 60, sugar 107, calcium is 8.8, total bili is 0.5, AST is 40, ALT is 50 and alkaline phosphatase 70. Total protein is 5.9. ASSESSMENT AND PLAN: He had a bunch of issues going on while he is here. He is being seen by GI, Infectious Disease, Pulmonary. He has a acute cholecystitis, nonsurgical. The family surgical intervention, thrush, dementia, hypertension, pneumonia, sepsis and is quite weak. I want to get the okay from ID. We will discharge him home. Get physical therapy, get him to stand. We will check his labs tomorrow. Discussed with the at length. Maurice Perez DO [facility]
[2017-06-29] MEDS: Sodium Chloride 0.9% 1,000 ML IV SCH (17:48)
--- NOTE | 2017-06-29 18:38 | PN ---
DATE: 06/29/2017 SUBJECTIVE: The patient is in bed, in no acute distress, nontoxic. PHYSICAL EXAMINATION: VITAL SIGNS: Temperature is 98, blood pressure is 140/80, respiratory rate of 18, and heart rate of 60. HEENT: Unremarkable. NECK: Supple. LUNGS: Have decreased breath sounds. HEART: Normal S1, S2. ABDOMEN: Soft and nontender. LABORATORY DATA: Reveals a white count of 6.4, hemoglobin of 12, and platelets of 269. Coagulation is noted. Chemistries reveals a BUN of 6, creatinine of 0.6, and procalcitonin is 1.15. Urinalysis is noted, and serology is noted. Microbiology reveals the cultures are negative. Review of orders reveals the patient to be on Zosyn. Dr. Perez's note is reviewed from this morning. ASSESSMENT AND PLAN: This is a 76-year-old male seen earlier today in 577, bed 2, admitted with sepsis with acute cholecystitis and right lower lobe healthcare-associated pneumonia, hypertension, dyslipidemia, and dementia. When seen early this morning, doing well on Zosyn and doxycycline day #8. The patient is currently on only on Zosyn. The patient is eating well, doing well. Leukocytosis is resolved. We will discontinue the Zosyn also and follow the patient, off antibiotics. No further antibiotics needed at this point. Ambrosio Bhatti MD
[2017-06-29] MEDS: Albuterol-Ipratrop 3 mg / 0.5 (3 ml) UD IH PRN (23:13)
[2017-06-30] MEDS: Albuterol-Ipratrop 3 mg / 0.5 (3 ml) UD IH SCH ×2 (02:19→07:43)
[2017-06-30 07:35] VITALS: TEMP 98.6; O2SAT 97
[2017-06-30] MEDS: Budesonide 0.5 mg/2 ml Inhal Susp UD IH SCH (07:43)
--- NOTE | 2017-06-30 08:20 | PN ---
DATE: 06/30/2017 PULMONARY NOTE SUBJECTIVE: The patient appears comfortable this morning. He is not short of breath at rest. OBJECTIVE: VITALS: Temperature is 98.7, pulse 85, respirations 18, blood pressure 164/89. Oxygen saturation on nasal cannula is 95%. HEENT: Normocephalic, atraumatic. No JVD. CARDIOVASCULAR: Systolic ejection murmur at the lower left sternal border. No S3 gallop. LUNGS: Crackles noted at the right base. Less rhonchi. No wheezing. EXTREMITIES: Mild edema. No cyanosis, no clubbing. Calves are nontender to palpation. GI: Abdomen is soft, nontender, nondistended. Bowel sounds are positive. SKIN: No acute rash. NEUROLOGIC: Limited at the present time. IMPRESSION: 1. Acute cholecystitis. 2. Right lower lobe pneumonia. 3. Chronic obstructive pulmonary disease. 4. Advanced dementia. 5. Mild bronchospasm. PLAN: The patient appears comfortable this morning. He is not short of breath at rest. On physical exam, there is no significant bronchospasm noted. In addition, there is no significant alveolar-arterial gradient. I will continue with the current nebulizer treatments and inhaled steroids for now. I will also continue with the aspiration precautions. Input by Dr. Bhatti (Infectious Disease) is noted. Temperatures have resolved. The leukocytosis has resolved. The patient is now off antibiotic therapy. Clinical status of the patient is certainly improved - compared to last week. However, again, the future status/prognosis for this chronically ill elderly patient remains very guarded at best. I will discuss the above with Dr. Perez. Cory Acevedo MD [facility]
--- NOTE | 2017-06-30 08:34 | DS ---
HOSPITAL COURSE: I see him resting comfortably in bed. He is alert. He is off the antibiotics. Mild upper airway congestion. He is going to go home on Catapres 0.1 three times a day, albuterol by nebulizer treatments at home. He will also get the nebulizer machine and tubing, Norvasc 2.5 daily, nystatin powder and also continue his Flomax, Pulmicort inhaler also. PHYSICAL EXAMINATION: VITAL SIGNS: He has 98.6 temperature, 77 pulse, 154/80 blood pressure, 18 respiratory rate, 97% O2 sat on room air. HEENT: His head is atraumatic and normocephalic. HEART: Regular rate. LUNGS: Mild upper airway congestion, but lungs are clear. ABDOMEN: Soft. EXTREMITIES: No edema. LABORATORY DATA: He has 132 sodium, potassium 3.2, we gave him a K-rider, BUN 6, creatinine 0.6, GFR is greater than 60, sugar is 107, calcium is 8.8, and total bilirubin is 0.5. White count is 6.4, hemoglobin is 12.9, hematocrit is and platelets are 269. Overall, he did well. He will be discharged home. He had pneumonia, sepsis, hypertension, acute cholecystis, refused physical therapy, thrush, and hepatitis C. He will be discharged. We will see him . Maurice Perez DO [facility]
[2017-06-30 09:26] LABS: ALBUMIN 3.1 g/dL (3.0-4.8); ALT/SGPT 58 U/L (7-56); AST/SGOT 50 U/L (17-59); BLOOD UREA NITROGEN 7 mg/dL (7-21); CALCIUM 8.8 mg/dL (8.4-10.5); GFR AFRICAN-AMERICAN > 60; GFR NON-AFRICAN AMERICAN > 60
[2017-06-30] MEDS: Nystatin 100,000 Units/ml Oral Susp 5 ml UD PO SCH ×2 (10:15→13:20)
[2017-06-30 13:22] VITALS: BP 155/72; PULSE 71
== END 2017-06-30 14:42 | disposition home or self-care (01) | DRG 871 ==
LOC: ED 12:56 → ERH 21:31 → 5RSO 23:28 → 5RNO 06-29 19:31
PROVIDERS: ADMIT Family Medicine; ATTEND Family Medicine
PROC: 3E0F7GC Introduction of Other Therapeutic Substance into Respiratory Tract, Via Natural or Artificial Opening (ICD-10-PCS; principal; 2017-06-23)
DX: A41.9 Sepsis, unspecified organism (principal); J18.9 Pneumonia, unspecified organism; K80.00 Calculus of gallbladder with acute cholecystitis without obstruction; G30.9 Alzheimer's disease, unspecified; J44.0 Chronic obstructive pulmonary disease with (acute) lower respiratory infection; B37.0 Candidal stomatitis; F02.80 Dementia in other diseases classified elsewhere, unspecified severity, without behavioral disturbance, psychotic disturbance, mood disturbance, and anxiety; G40.909 Epilepsy, unspecified, not intractable, without status epilepticus; I10 Essential (primary) hypertension; E78.5 Hyperlipidemia, unspecified; J98.01 Acute bronchospasm; E78.00 Pure hypercholesterolemia, unspecified; B19.20 Unspecified viral hepatitis C without hepatic coma; K76.89 Other specified diseases of liver; K59.00 Constipation, unspecified; K63.89 Other specified diseases of intestine; Z86.73 Personal history of transient ischemic attack (TIA), and cerebral infarction without residual deficits; Z87.891 Personal history of nicotine dependence